=== PATIENT | female | born 1975 | race Caucasian/White ===

== ENCOUNTER 2017-08-18 10:53 | Emergency (ER) | payer BC, OTHER ==
[2017-08-18 11:46] LABS: #Basophils 0.1 thou/uL (0.0-0.2); #Eosinphils 0.3 thou/uL (0.0-0.7); #Lymphocytes 1.8 thou/uL (1.20-3.40); #Monocytes 0.4 thou/uL (0.11-0.59); #Neutrophils 4.8 thou/uL (1.40-6.50); %Eosinophils 4.6 % (0.0-10.0); %Lymphocytes 24.2 % (21.0-51.0); %Monocytes 5.3 % (0.0-10.0); Mean Platelet Volume 8.9 fL (7.4-10.4); Red Blood Cell (RBC) Count 4.02 mill/uL (4.20-5.40); White Blood Cell (WBC) Count 7.4 thou/uL (4.8-10.8)
--- OUTSIDE RECORDS SUMMARY | 2017-08-18 12:08 | XMS | Clinical Summary ---
:1975 Author Organization [facility] Address [address] [place] [address] Phone Care Team Providers Name Role Phone , Primary Care Provider Unavailable Allergies Not on File Current Medications Not on file Active Problems Not on file Social History Tobacco Use Types Packs/Day Years Used Date Never Assessed Sex Assigned at Date Recorded Not on file Last Filed Vital Signs Not on file Plan of Treatment Not on file Results Not on filefrom Last 3 Months
--- OUTSIDE RECORDS SUMMARY | 2017-08-18 12:08 | XMS | Clinical Summary ---
:1975 Author Organization [facility] Address [address] [place] [address] Phone Care Team Providers Name Role Phone , Primary Care Provider Unavailable Allergies Active Allergy Reactions Severity Noted Date Comments Azithromycin 05/06/2017 Other 05/06/2017 All SSRI's tingling all over Current Medications Prescription Sig. Disp. Refills Start Date End Date Status butalbital-acetamino Take by mouth every 4 Active phen-caff (FIORICET) (four) hours. 50-300-40 mg Cap aspirin 81 MG EC Take 81 mg by mouth Active tablet daily. rivaroxaban Take by mouth. Active (XARELTO) 15 mg Tab tablet hyoscyamine 0.125 mg Take 0.125 mg by Active TbDL disintegrating mouth every 4 (four) tablet hours as needed. ondansetron Take 4 mg by mouth Active (ZOFRAN-ODT) 4 MG every 8 (eight) hours disintegrating as needed for Nausea. tablet ranitidine (ZANTAC) Take 300 mg by mouth Active 300 MG capsule every evening. EPINEPHrine (EPIPEN) Inject 0.3 mg Active 0.3 mg/0.3 mL AtIn intramuscularly once. DOMPERIDONE, BULK, by Miscellaneous Active MISC route. sodium Take 1 tablet (250 mg 20 tablet 0 05/06/2017 Active phosphates-potassium total) by mouth 4 phosphate (K-PHOS (four) times daily. NEUTRAL) 250 mg Tab tablet sodium Take 1 tablet (250 mg 10 tablet 0 05/06/2017 Active phosphates-potassium total) by mouth 2 phosphate (K-PHOS (two) times daily. NEUTRAL) 250 mg Tab tablet Active Problems Not on file Social History Tobacco Use Types Packs/Day Years Used Date Never Smoker Alcohol Use Drinks/Week oz/Week Comments Yes occasional Sex Assigned at Date Recorded Not on file Last Filed Vital Signs Vital Sign Reading Time Taken Blood Pressure 117/64 05/07/2017 12:17 AM CDT Pulse 84 05/07/2017 12:17 AM CDT Temperature 36.8 C (98.3 F) 05/07/2017 12:17 AM CDT Respiratory Rate 16 05/07/2017 12:17 AM CDT Oxygen Saturation 99% 05/07/2017 12:17 AM CDT Inhaled Oxygen Concentration - - Weight - - Height - - Body Mass Index - - Plan of Treatment Not on file Results Not on filefrom Last 3 Months
[2017-08-18 12:10] LABS: ALT (SGPT) 23 U/L (8-55); AST (SGOT) 20 U/L (5-34); Alkaline Phosphatase 86 U/L (40-150); Anion Gap 13 mmol/L (10-20); BUN (Urea Nitrogen) 9 mg/dL (7.0-18.7); Bilirubin, Total 0.3 mg/dL (0.2-1.2); Calc. Creatinine Clearance 0 mL/min (70-130); Calcium 9.5 mg/dL (7.8-10.44); Carbon Dioxide 22 mmol/L (22-29); Chloride 107 mmol/L (98-107); Estimated GFR-MDRD Greater than 90; Globulin 3.2 g/dL (2.4-3.5); Lipase 36 U/L (8-78); Protein, Total 7.6 g/dL (6.0-8.3)
[2017-08-18 13:31] LABS: Bilirubin Negative (Negative); Blood, Urine Small (Negative); Glucose, Urine (Dipstick) Negative (Negative); Ketone, Urine Negative (Negative); Nitrite Negative (Negative); Protein, Urine (Dipstick) Negative (Neg-Trace); Urobilinogen 0.2 mg/dL (0.2-1.0)
[2017-08-18 13:36] LABS: Bacteria/HPF None Seen HPF (None Seen); Hyaline Casts/LPF 0-3 HYALINE CAST LPF (0-3 Hyaline); RBC/HPF 0-3 HPF (0-3); Squamous Epithelial 0-3 HPF (0-3); WBC/HPF 0-3 HPF (0-3)
--- NOTE | 2017-08-18 14:24 | CT ---
CT ABDOMEN AND PLEVIS WITH CONTRAST: Date: 08/18/17 HISTORY: Abdominal pain. Sudden right-sided flank pain. COMPARISON: CT abdomen and pelvis dated 05/11/17. FINDINGS: Lung bases are clear. No pericardial effusion. Prior cholecystectomy. No dilated loops of large or small bowel. There is what appears to be a septated uterus. There is a fibroid of the anterior uterine body. Skel eton is unremarkable. Appendix is visualized and is normal. Aortoiliac contour is normal. IMPRESSION: 1. No acute abnormality in abdomen or pelvis. 2. Normal appendix. 3. There is likely a septated uterus, normal variant. POS: [facility]
[2017-08-18] MEDS ORDERED: Ketorolac Tromethamine 30 MG/ML VIAL ONE (14:47)
[2017-08-18] MEDS ORDERED: ISOVUE-370 76%-LOCM 1 ML ONE (15:41)
== END 2017-08-18 14:56 | disposition home or self-care (01) ==
LOC: ERS 10:53
DX: R10.9 Unspecified abdominal pain (principal); R31.9 Hematuria, unspecified; K21.9 Gastro-esophageal reflux disease without esophagitis; Z79.899 Other long term (current) drug therapy
CPT/HCPCS: 36415; 74177; 80053; 81003; 81015; 83690; 85025; 96374; 96375; J1642; J1885

== ENCOUNTER 2019-02-25 21:44 | Emergency (ER) | payer BC ==
[2019-02-25 22:30] LABS: Hemoglobin 12.7 g/dL (12.0-16.0); Mean Corpuscular HGB CONC 32.3 g/dL (32.0-36.0); Mean Corpuscular Hemoglobin 29.3 pg (27.0-31.0); Mean Corpuscular Volume 90.5 fL (78.0-98.0); Mean Platelet Volume 9.1 fL (7.4-10.4); Platelet Count 220 thou/uL (130-400); Red Blood Cell (RBC) Count 4.33 mill/uL (4.20-5.40); White Blood Cell (WBC) Count 24.1 thou/uL (4.8-10.8)
[2019-02-25 22:37] LABS: Bilirubin Negative (Negative); Blood, Urine Large (Negative); Clarity CLEAR (Clear); Glucose, Urine (Dipstick) Negative (Negative); Leukocyte Negative (Negative); Nitrite Negative (Negative); Protein, Urine (Dipstick) Negative (Neg-Trace); Specific Gravity, Urine 1.024 (1.002-1.036); Urobilinogen 0.2 mg/dL (0.2-1.0); pH, Urine 5.5 (5.0-9.0)
[2019-02-25 22:39] LABS: Bacteria/HPF None Seen HPF (None Seen); Hyaline Casts/LPF 0-3 HYALINE CAST LPF (0-3 Hyaline); WBC/HPF 0-3 HPF (0-3)
[2019-02-25 22:44] LABS: Band 6 % (5-11); Lymphocytes 14 % (21-51); MDiff Complete? YES; Monocytes 3 % (0-10); Neutrophil 77 % (42-75)
[2019-02-25 22:47] LABS: ALT (SGPT) 29 U/L (8-55); AST (SGOT) 15 U/L (5-34); Albumin 4.3 g/dL (3.5-5.0); Alkaline Phosphatase 79 U/L (40-150); Anion Gap 16 mmol/L (10-20); BUN (Urea Nitrogen) 15 mg/dL (7.0-18.7); Bilirubin, Total 0.3 mg/dL (0.2-1.2); Calc. Creatinine Clearance 0 mL/min (70-130); Calcium 9.3 mg/dL (7.8-10.44); Carbon Dioxide 21 mmol/L (22-29); Chloride 104 mmol/L (98-107); Estimated GFR-MDRD 88; Globulin 3.1 g/dL (2.4-3.5); Glucose 151 mg/dL (70-105); Lipase 77 U/L (8-78); Potassium 4.1 mmol/L (3.5-5.1); Protein, Total 7.4 g/dL (6.0-8.3); Sodium 137 mmol/L (136-145)
[2019-02-25] MEDS ORDERED: Cyclobenzaprine 10 MG TAB ONE (23:13)
== END 2019-02-26 00:06 | disposition home or self-care (01) ==
LOC: ERS 21:44
DX: R10.9 Unspecified abdominal pain (principal); M54.2 Cervicalgia; K21.9 Gastro-esophageal reflux disease without esophagitis
CPT/HCPCS: 36415; 80053; 81003; 81015; 83690; 85025; 99284

== ENCOUNTER 2019-06-10 18:53 | Inpatient (IN) | payer BC ==
[~2019-06-10 18:53] MED LIST: Iopamidol 370 76% 100 ML VIAL ONE
[2019-06-10 19:30] LABS: Hemoglobin 11.7 g/dL (12.0-16.0); Mean Corpuscular HGB CONC 30.8 g/dL (32.0-36.0); Mean Corpuscular Hemoglobin 25.3 pg (27.0-31.0); Mean Corpuscular Volume 82.2 fL (78.0-98.0); Mean Platelet Volume 9.5 fL (7.4-10.4); Platelet Count 274 thou/uL (130-400); RBC Distribution Width 20.8 % (11.5-14.5); Red Blood Cell (RBC) Count 4.62 mill/uL (4.20-5.40); White Blood Cell (WBC) Count 23.6 thou/uL (4.8-10.8)
[2019-06-10 19:39] LABS: Bacteria/HPF None Seen HPF (None Seen); Bilirubin Negative (Negative); Blood, Urine 1+ (Negative); Clarity Clear (Clear); Glucose, Urine (Dipstick) Greater than 1000 mg/dL (Negative); Leukocyte Negative Leu/uL (Negative); Nitrite Negative (Negative); Protein, Urine (Dipstick) Negative (Neg-Trace); RBC/HPF 0-3 HPF (0-3); Squamous Epithelial 0-3 HPF (0-3); Urobilinogen Normal mg/dL (Less than 2); WBC/HPF 0-3 HPF (0-3)
[2019-06-10 19:42] LABS: Anisocytosis SLIGHT = 6-15 cells (100X) (0-5/hpf); Band 8 % (5-11); Hypochromia SLIGHT = 6-15 cells (100X) (0-5/hpf); Lymphocytes 6 % (21-51); MDiff Complete? YES; Neutrophil 86 % (42-75); Platelet Morphology Comment Appears Adequate; Polychromasia SLIGHT = 2-3 cells (100X) (0-2/hpf); Tear Drops SLIGHT = 2-5 cells (100X) (0-1/hpf)
[2019-06-10 19:48] LABS: ALT (SGPT) 40 U/L (8-55); AST (SGOT) 18 U/L (5-34); Albumin 4.1 g/dL (3.5-5.0); Alkaline Phosphatase 75 U/L (40-150); Anion Gap 17 mmol/L (10-20); BUN (Urea Nitrogen) 6 mg/dL (7.0-18.7); Bilirubin, Total 0.2 mg/dL (0.2-1.2); Calc. Creatinine Clearance 0 mL/min (70-130); Calcium 9.2 mg/dL (7.8-10.44); Carbon Dioxide 15 mmol/L (22-29); Chloride 106 mmol/L (98-107); Estimated GFR-MDRD 75; Glucose 290 mg/dL (70-105); Lipase 63 U/L (8-78); Potassium 3.6 mmol/L (3.5-5.1); Protein, Total 7.1 g/dL (6.0-8.3); Sodium 134 mmol/L (136-145)
[2019-06-10 20:23] LABS: BHCG - Serum Negative (NEGATIVE); Pregs Control Background? CLEAR/WHITE (CLR/WHITE); Pregs Control Bar Appear? YES (CONTROL BAR)
[2019-06-10] MEDS ORDERED: Ondansetron PF 4 MG/2 ML Vial ONE (20:28)
[2019-06-10] MEDS ORDERED: Piperacillin/Tazobactam 3.375 GM VIAL ONE (21:24)
[2019-06-10] MEDS ORDERED: Pantoprazole 40 MG VIAL ONE ×2 (21:24→22:57)
[2019-06-10] MEDS ORDERED: Morphine 4 MG/ML VIAL ONE (21:53)
--- NOTE | 2019-06-10 22:30 | CT ---
CT OF THE ABDOMEN AND PELVIS WITH IV CONTRAST INDICATION: Diffuse abdominal pain, worse over the last 2 days with history of Crohn's disease COMPARISON: CT the abdomen and pelvis with contrast dated August 18, 2017 FINDINGS: ABDOMEN: Lung bases: Clear Liver: No focal lesion. Gallbladder: Surgically absent Pancreas: Normal. Adrenal glands: Normal. Spleen: Normal. Kidneys: Normal. Retroperitoneum of the upper abdomen: No lymphadenopathy or free fluid is identified. Pelvis: Small and large bowel: Small bowel is of normal caliber. There is a normal appendix in the right lowe r quadrant. Bladder: Normal. Rectal and perirectal soft tissues:Normal. Reproductive structures: There is a septated uterus with an enlarging left uterine body fibroid now m easuring 4.4 cm were previously measured 2.2 cm. Suspected 2.4 cm right adnexal cyst. Suspected 2.6 and meter left adnexal cyst. Debris versus tampon is seen within the vagina. Free fluid in pelvis: No free fluid is evident. Lymphadenopathy pelvis: No lymphadenopathy is evident. Osseous structures: No acute osseous abnormality. No destructive osteolytic or osteoblastic lesion i s identified. IMPRESSION: 1. Enlarging left uterine intramural fibroid 2. Suspected bilateral adnexal cysts. Pelvic ultrasound may be helpful for further characterization. 3. No additional acute abnormality.
[2019-06-11 01:28] LABS: Lactic Acid 3.3 mmol/L (0.5-2.2)
[2019-06-11 01:47] VITALS: BMI 30.4
[2019-06-11] MEDS ORDERED: Ondansetron ODT 4 MG TAB SL PRN (02:56)
[2019-06-11] MEDS ORDERED: Ondansetron PF 4 MG/2 ML Vial IVP PRN (02:56)
[2019-06-11] MEDS ORDERED: Acetaminophen 325 MG TAB PO PRN (02:56)
[2019-06-11] MEDS ORDERED: Sodium Chloride 0.9% 1,000 ML IV SCH (03:00)
[2019-06-11] MEDS: Piperacillin/Tazobactam 3.375 GM in Sodium Chloride 0.9% 100 ML IVPB SCH ×3 (03:36→17:47)
[2019-06-11] MEDS ORDERED: Cyclobenzaprine 10 MG TAB PO PRN (08:37)
[2019-06-11] MEDS ORDERED: traMADol HCl 50 MG TAB PO PRN (08:37)
[2019-06-11] MEDS ORDERED: Ondansetron ODT 4 MG TAB PO PRN (08:39)
[2019-06-11] MEDS ORDERED: HYDROcodone/Acetaminophen 10/325 mg Tablet PO PRN (08:39)
[2019-06-11] MEDS ORDERED: HYDROcodone/Acetaminophen 5/325 mg Tablet PO PRN (08:39)
[2019-06-11] MEDS ORDERED: Dextrose 5% in Water 1,000 ML IV PRN (08:46)
[2019-06-11] MEDS ORDERED: Dextrose 50% Abboject 50 ML SYRINGE SLOW IVP PRN (08:46)
[2019-06-11 10:02] LABS: Hemoglobin A1c 5.7 % (4.0-6.0)
[2019-06-11 12:38] LABS: #Eosinphils 0.2 thou/uL (0.0-0.7); #Lymphocytes 4.5 thou/uL (1.20-3.40); #Monocytes 1.4 thou/uL (0.11-0.59); #Neutrophils 22.2 thou/uL (1.40-6.50); %Basophils 0.1 % (0.0-1.0); %Eosinophils 0.6 % (0.0-10.0); %Lymphocytes 15.8 % (21.0-51.0); %Monocytes 4.8 % (0.0-10.0); %Neutrophils 78.7 % (42.0-75.0); Hemoglobin 10.1 g/dL (12.0-16.0); Mean Corpuscular HGB CONC 31.4 g/dL (32.0-36.0); Mean Corpuscular Hemoglobin 25.6 pg (27.0-31.0); Mean Corpuscular Volume 81.5 fL (78.0-98.0); Mean Platelet Volume 9.2 fL (7.4-10.4); Platelet Count 251 thou/uL (130-400); RBC Distribution Width 20.7 % (11.5-14.5); Red Blood Cell (RBC) Count 3.95 mill/uL (4.20-5.40); White Blood Cell (WBC) Count 28.2 thou/uL (4.8-10.8)
[2019-06-11 12:56] LABS: Lactic Acid 3.8 mmol/L (0.5-2.2)
[2019-06-11 13:00] LABS: Anion Gap 12 mmol/L (10-20); BUN (Urea Nitrogen) 4 mg/dL (7.0-18.7); Calc. Creatinine Clearance 112 mL/min (70-130); Calcium 8.7 mg/dL (7.8-10.44); Carbon Dioxide 22 mmol/L (22-29); Chloride 107 mmol/L (98-107); Estimated GFR-MDRD 85; Glucose 86 mg/dL (70-105); Potassium 3.3 mmol/L (3.5-5.1); Sodium 138 mmol/L (136-145)
--- NOTE | 2019-06-11 13:29 | HP ---
PRIMARY CARE PHYSICIAN: Kala Tay M.D., [facility]. ALLERGIST IMMUNOLOGIST: Warren Patricia M.D. CHIEF COMPLAINT/REASON FOR ADMISSION: Abdominal pain and black tarry stools. HISTORY OF PRESENT ILLNESS: Ms. Araujo is a very pleasant 43-year-old female with a known history of Crohn disease, diagnosed initially in 2014. She has a background history of intermittent abdominal pain for the last several months, seen and evaluated at intervals with Dr. Patricia. She was recently hospitalized for an observational one-day stay in March 2019, after unsuccessful initiation of sulfasalazine therapy with interval development of chest pain. Sulfasalazine was subsequently discontinued. Previously for Crohn's, she had been on Humira. This has now been discontinued, in favor of Remicade. She has undergone three total Remicade infusions. She saw Dr. Patricia in the office on 06/07/2019, noting intermittent abdominal discomfort with a clinical working diagnosis of gastroparesis. On 06/09/2019, she noted black tarry stools, occurring x3 episodes. She contacted the Gastroenterology office as well and received instructions by phone on how to proceed. Yesterday, she proceeded for iron infusion, generally felt worse, was noted during infusion to have slightly decreased hemoglobin relative to baseline. She reports a small amount of black tarry stool yesterday, contacted the GI office once again, and was referred to the hospital. She proceeded to hospital yesterday evening, triage time 18:54 in the emergency department. The patient was seen and evaluated by me this morning, approximately 7:45 a.m. She endorses mild nausea, but no vomiting. She has abdominal pain, which is periumbilical in nature, no specific cramping. No bowel movements today. She endorses subjective low- grade temperature, has been afebrile thus far during her hospitalization. In the emergency department, CT abdomen and pelvis with IV contrast was done and was overall unremarkable. Laboratory evaluation notable for elevated white blood cell count of 23,000, hemoglobin of 11.7, serum bicarbonate of 15, glucose of 290. Lactic acid elevated at 3.2. She was placed on empiric antibiotic coverage with Zosyn, admitted to the hospital for additional evaluation and care. PAST MEDICAL HISTORY: 1. Crohn disease, with complications including Crohn's-related arthritis - Diagnosed with Crohn disease in 2014. Sees Dr. 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 2. Fibromyalgia. 3. History of vasovagal syncope with previous negative cardiac evaluations. 4. Hypothyroidism. 5. Gastroesophageal reflux disease. 6. Iron deficiency anemia, on chronic iron infusion. PAST SURGICAL HISTORY: 1. MediPort placement. 2. Cholecystectomy. 3. . 4. Right hand surgery in 1983. 5. Ovarian cyst. 6. Laparoscopy in 1993. SOCIAL HISTORY: Ms. Araujo is . She lives in [facility]. She has one daughter, who is 22. 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 No alcohol use , no illicit drug use, no tobacco use. ALLERGIES: LISTED PER CHART TO AZITHROMYCIN. CURRENT MEDICATIONS: Reviewed with the patient. 1. Levothyroxine 50 mcg p.o. once daily. 2. Pantoprazole 40 mg p.o. once daily. 3. Ranitidine 300 mg p.o. once daily. 4. Prednisone 15 mg p.o. once daily (each week, decreasing dose of prednisone by 5 mg). 5. Budesonide 3 mg, takes three capsules p.o. once daily. 6. Cyclobenzaprine 10 mg p.o. q.h.s. p.r.n. muscle spasm. 7. Tramadol 50 mg p.o. q.8 hourly p.r.n. pain. FAMILY HISTORY: Reviewed and is not pertinent to current admission. REVIEW OF SYSTEMS: Full review of systems reviewed/addressed/negative except otherwise as mentioned. Specifically, denies bright red blood per rectum. No hematemesis. Weight has generally been stable. No recent joint that has flared up with arthropathy. PHYSICAL EXAMINATION: VITAL SIGNS: Blood pressure is 114/67, heart rate is 91, temperature 98.0, saturating 100% on room air. GENERAL: This is a well-developed, well-nourished female, sitting up in bed, in no acute distress. Mistry facies is present in the context of longstanding steroids as well as some mild hirsutism present. HEENT: Eyes are without conjunctival injection or scleral icterus. Oropharynx is clear without erythema or exudate. NECK: Supple. Full range of motion. HEART: Regular rate and rhythm without distinct murmurs/rubs/gallops. LUNGS: Clear to auscultation bilaterally. ABDOMEN: Soft, minimally tender, no guarding/no rebound. EXTREMITIES: No clubbing/cyanosis/edema. No evidence of joint inflammation active in joints at this time. SKIN: Without skin rash or skin change. LAB/DATA REVIEW: Laboratory evaluation includes a white blood cell count of 23, 000, hemoglobin 11.7, hematocrit 37, platelet count 274, 86% neutrophils, 6% lymphocytes. Chemistry panel, serum sodium 134, potassium 3.6, carbon dioxide 15, BUN 6, creatinine is 0.8, glucose 290. Lactic acid 3.2. Lipase is normal at 63. test negative. IMPRESSION: 1. Crohn disease with reported history of melena, fecal occult blood positive, in the context of elevated white blood cell count and lactic acid, concerning for sepsis secondary to abdominal source. 2. Metabolic acidosis. 3. Hyperglycemia without background history of diabetes, possible development of and steroid-induced diabetes. 4. Abdominal discomfort, likely secondary to Crohn disease. 5. Elevated lactic acid. 6. Iron deficiency anemia, on chronic iron infusion as an outpatient. PLAN/RECOMMENDATIONS: 1. GI - I spoke by phone with Dr. Chun, covering for Dr. Patricia in GI, care appreciated. Continue n.p.o. status. Pending GI evaluation, upper endoscopy versus trial of diet. Presently on antibiotic coverage with Zosyn, follow white blood cell count/parameters for sepsis. Interestingly, low-grade temperature reported by the patient at home, no distinct fever observed in the emergency room. However, she is immunosuppressed on Remicade and chronic steroids, so may have a modulated fever response. 2. Endocrine - Hemoglobin A1c appears to be in the normal range, recheck basic metabolic panel, placed on Accu-Cheks and insulin correctional. 3. Fluids, electrolytes, nutrition. Continue IV fluids, check morning basic metabolic panel, metabolic acidosis present on admission. Clear liquid diet, gluten-free vegan, mushroom allergy ordered if no endoscopy planned. 4. DVT prophylaxis, hold on Lovenox at this time secondary to concern of clinical bleeding. 5. Given her age/comorbidities, the patient is a high risk. Monitor closely in the inpatient status. Job ID: [id number] [facility]
[2019-06-11] MEDS: Sodium Chloride 0.9% 1,000 ML IV SCH ×2 (13:54→23:23)
[2019-06-11] MEDS ORDERED: predniSONE 5 MG TAB PO SCH (14:00)
[2019-06-11] MEDS: Famotidine 20 MG TAB PO SCH (21:42)
[2019-06-11] MEDS: Ondansetron PF 4 MG/2 ML Vial IVP PRN (23:27)
[2019-06-11] MEDS: Morphine 4 MG/ML VIAL SLOW IVP PRN (23:28)
[2019-06-12] MEDS: Piperacillin/Tazobactam 3.375 GM in Sodium Chloride 0.9% 100 ML IVPB SCH ×4 (00:19→18:30)
[2019-06-12] MEDS: Ondansetron PF 4 MG/2 ML Vial IVP PRN ×3 (05:33→20:01)
[2019-06-12] MEDS: Morphine 4 MG/ML VIAL SLOW IVP PRN ×3 (05:34→20:05)
[2019-06-12] MEDS: Levothyroxine Sodium 50 MCG TAB PO SCH (05:35)
[2019-06-12 05:39] LABS: #Eosinphils 0.3 thou/uL (0.0-0.7); #Lymphocytes 3.6 thou/uL (1.20-3.40); #Monocytes 1.1 thou/uL (0.11-0.59); #Neutrophils 13.8 thou/uL (1.40-6.50); %Basophils 0.2 % (0.0-1.0); %Eosinophils 1.6 % (0.0-10.0); %Lymphocytes 18.9 % (21.0-51.0); %Neutrophils 73.2 % (42.0-75.0); Hemoglobin 9.5 g/dL (12.0-16.0); Mean Corpuscular HGB CONC 30.7 g/dL (32.0-36.0); Mean Corpuscular Hemoglobin 25.2 pg (27.0-31.0); Mean Corpuscular Volume 81.8 fL (78.0-98.0); Mean Platelet Volume 9.1 fL (7.4-10.4); Platelet Count 226 thou/uL (130-400); RBC Distribution Width 20.6 % (11.5-14.5); Red Blood Cell (RBC) Count 3.77 mill/uL (4.20-5.40); White Blood Cell (WBC) Count 18.8 thou/uL (4.8-10.8)
[2019-06-12 05:58] LABS: Anion Gap 11 mmol/L (10-20); BUN (Urea Nitrogen) 4 mg/dL (7.0-18.7); Calc. Creatinine Clearance 124 mL/min (70-130); Calcium 8.7 mg/dL (7.8-10.44); Carbon Dioxide 25 mmol/L (22-29); Chloride 110 mmol/L (98-107); Estimated GFR-MDRD Greater than 90; Glucose 96 mg/dL (70-105); Potassium 3.3 mmol/L (3.5-5.1); Sodium 143 mmol/L (136-145)
[2019-06-12] MEDS ORDERED: predniSONE 5 MG TAB PO SCH ×2 (08:00→17:00)
--- NOTE | 2019-06-12 08:50 | RAD ---
EXAM: Chest PA and lateral: HISTORY: Leukocytosis. COMPARISON: None FINDINGS: Right-sided Mediport catheter terminates over the region of the right atrium. Heart: Normal cardiac silhouette Aorta: Unremarkable Pulmonary vessels: Normal Costophrenic angles: Costophrenic angles are clear. Lungs: No consolidation or masses. Pneumothorax: No pneumothorax Osseous structures: No osseous abnormalities IMPRESSION: No acute cardiopulmonary process.
[2019-06-12] MEDS: Famotidine 20 MG TAB PO SCH ×2 (08:53→19:48)
--- NOTE | 2019-06-12 13:42 | EKG ---
Test Reason : Blood Pressure : / mmHG Vent. Rate : 115 BPM Atrial Rate : 115 BPM P-R Int : 120 ms QRS Dur : 084 ms QT Int : 324 ms P-R-T Axes : 041 -13 -04 degrees QTc Int : 448 ms Sinus tachycardia Otherwise normal ECG Confirmed by BALBIR HANNA, MONTEZ ([id number]), newspaper photo editor VERONICA COBB ([id number]) on 06/12/2019 1:42:39 PM Referred By: Confirmed By:MONTEZ MCGREGOR MD
--- NOTE | 2019-06-12 14:23 | MRI ---
MRI ABDOMEN WITH CONTRAST MRI ENTEROGRAPHY: CLINICAL HISTORY: History of abdominal pain, chronic diarrhea. History of Crohn's disease. FINDINGS: There is no acute abnormality of the imaged solid abdominal organs. The visualized contrast-opacifie d small bowel demonstrates a normal caliber. No obvious small bowel wall inflammation or surrounding mesenteric edema is visualized. The colon is predominantly decompressed, limiting evaluation. Heterogeneity of the uterus with intrinsic masses indicates fibroid uterus. There are bilateral adne xal cysts noted. Punctate parenchyma T2 hyperintensities of the right kidney statistically reflect c ysts, although are too small to definitively characterize. Abdominal aorta is normal in caliber. No acute abnormality of the regional marrow. IMPRESSION: 1. No acute bowel inflammation identified by MR enterography. 2. No evidence of bowel obstruction. 3. Additional details are described above. POS: [facility]
--- NOTE | 2019-06-12 15:27 | PDOC.HOSPP ---
- Subjective Subjective: Seen and examined. States that black tarry stools has gotten better since arrival. No mike blood in stools. Some abdominal pain, controlled on current regimen. Going for MRI abdomen this AM. - Objective Vital Signs & Weight: Vital Signs (12 hours) Temp Pulse Resp BP Pulse Ox 06/12/19 10:53 97.4 F L 82 20 139/90 100 06/12/19 08:45 100 06/12/19 08:00 98.3 F 100 20 124/81 100 Weight Weight 161 lb 6 oz I&O: 06/11/19 06/12/19 06/13/19 06:59 06:59 06:59 Intake Total 500 1050 Balance 500 1050 Result Diagrams: 06/12/19 05:27 06/12/19 05:27 Additional Labs: Accuchecks 06/12/19 06/12/19 06/11/19 10:53 05:06 20:44 POC Glucose 102 100 176 H 06/11/19 16:11 POC Glucose 105 Radiology Reviewed by me: Yes (CXR) ROS - Medication Medications: Active Medications Generic Name Dose Route Start Last Admin Trade Name Freq PRN Reason Stop Dose Admin Budesonide 9 mg 06/11/19 09:00 06/12/19 08:53 Entocort Ec PO 9 mg QAM ALEJANDRA Administration Famotidine 20 mg 06/11/19 21:00 06/12/19 08:53 Pepcid PO 20 mg BID ALEJANDRA Administration Glucagon 0.3 mg 06/12/19 09:00 06/12/19 13:17 Glucagon IVP 06/12/19 21:01 0.3 mg BID ALEJANDRA Administration Sodium Chloride 1,000 mls @ 80 mls/hr 06/11/19 13:15 06/11/19 23:23 Normal Saline 0.9% IV 1,000 mls .[id number] ALEJANDRA Administration Piperacillin Sod/Tazobactam 100 mls @ 200 mls/hr 06/11/19 18:00 06/12/19 13: 34 Sod 3.375 gm/ Sodium Chloride IVPB 100 mls Q6HR ALEJANDRA Administration Levothyroxine Sodium 50 mcg 06/12/19 06:00 06/12/19 05:35 Synthroid PO 50 mcg 0600 ALEJANDRA Administration Morphine Sulfate 4 mg 06/11/19 08:47 06/12/19 13:40 Morphine SLOW IVP 4 mg Q4H PRN Administration Breakthrough Pain Ondansetron HCl 4 mg 06/11/19 08:39 06/12/19 13:39 Zofran IVP 4 mg Q6H PRN Administration Nausea/Vomiting Pantoprazole Sodium 40 mg 06/11/19 09:00 06/12/19 08:53 Protonix PO 40 mg DAILY ALEJANDRA Administration Prednisone 15 mg 06/12/19 08:00 06/12/19 08:53 Prednisone PO 15 mg QAM-WM ALEJANDRA Administration - Exam NAD, awake alert Eye: PERRL, anicteric sclera ENT: moist mucosa Neck: supple, symmetric Heart: RRR, no murmur, no gallops, no rubs Respiratory: CTAB, no wheezes, no rales, normal chest expansion Gastrointestinal: soft, non-distended, normal bowel sounds, no hepatomegaly, no guarding, no rigidity, tender to palpation Extremities: 1+ LE edema Skin: no lesions Neurological: CN's grossly intact, no weakness, no focal deficits Musculoskeletal: normal tone Psychiatric: normal affect, A&O x 3 Hosp A/P (1) Crohns disease Code(s): K50.90 - CROHN'S DISEASE, UNSPECIFIED, WITHOUT COMPLICATIONS Status: Chronic (2) GI bleeding Code(s): K92.2 - GASTROINTESTINAL HEMORRHAGE, UNSPECIFIED Status: Acute (3) Abdominal pain Code(s): R10.9 - UNSPECIFIED ABDOMINAL PAIN Status: Acute (4) Sepsis Code(s): A41.9 - SEPSIS, UNSPECIFIED ORGANISM Status: Acute (5) Fever Code(s): R50.9 - FEVER, UNSPECIFIED Status: Acute (6) Leukocytosis Code(s): D72.829 - ELEVATED WHITE BLOOD CELL COUNT, UNSPECIFIED Status: Acute - Plan Plan: GI consultation, recommendations appreciated MRI abdomen noted CXR noted Remicaid recently started Black stools improving No need for transfusion at this time Broad spectrum ABX Culture and sensitivity - no growth to date Continue home meds as able GI and DVT PPX
[2019-06-12] MEDS: Sodium Chloride 0.9% 1,000 ML IV SCH (17:08)
[2019-06-12] MEDS: NS 0.9% w/ 20 MEQ KCL 1,000 ML/1,000 ML BAG IV SCH (17:09)
[2019-06-12] MEDS: HumaLOG 300 UNITS/3 ML VIAL SC PRN (17:11)
--- NOTE | 2019-06-12 17:39 | PRG ---
DATE OF SERVICE: 06/12/2019 SUBJECTIVE: Ms. Araujo had a little bit of periumbilical pain today. She states her stool has been formed and also loose. She had some flecks of black in her stool. She denies any cough, shortness of breath, dysuria, frequency, or urgency. She has been afebrile. OBJECTIVE: VITAL SIGNS: Temperature 97.4, pulse is 82, blood pressure 139/90. LUNGS: Clear. ABDOMEN: Slightly protuberant. She has cushingoid features. LABORATORY DATA: White count is 18.8, hemoglobin is 9.5, platelet count 226, 73 segs, no bands. Sodium 143, potassium 3.3, BUN and creatinine 4 and 0.6. Lactic acid 4. . Blood cultures are negative thus far. Chest x-ray, normal. QuantiFERON test, pending. MR enterography; no acute inflammatory bowel disease identified. No evidence of bowel obstruction. There is a fibroid uterus present. Bilateral adnexal cysts. ASSESSMENT: 1. Leukocytosis, she has no infection. She has been on steroids, and I think it is from that. 2. Crohn disease. No evidence of active disease. She had a C-reactive protein of less than 5 and a sedimentation rate of 3. RECOMMENDATIONS: Continue to wean steroids. If her hemoglobin is stable, she can go home tomorrow and follow up with Dr. Patricia. Job ID: [id number]
[2019-06-13] MEDS: Piperacillin/Tazobactam 3.375 GM in Sodium Chloride 0.9% 100 ML IVPB SCH ×3 (00:12→16:07)
[2019-06-13] MEDS: Levothyroxine Sodium 50 MCG TAB PO SCH (06:08)
[2019-06-13] MEDS: NS 0.9% w/ 20 MEQ KCL 1,000 ML/1,000 ML BAG IV SCH (06:23)
[2019-06-13] MEDS ORDERED: predniSONE 5 MG TAB PO SCH (08:00)
[2019-06-13] MEDS: Famotidine 20 MG TAB PO SCH (08:25)
[2019-06-13] MEDS ORDERED: Saccharomyces boulardii 250 MG CAP PO SCH (09:00)
[2019-06-13 09:26] LABS: #Basophils 0.1 thou/uL (0.0-0.2); #Eosinphils 0.1 thou/uL (0.0-0.7); #Lymphocytes 5.2 thou/uL (1.20-3.40); #Monocytes 1.1 thou/uL (0.11-0.59); #Neutrophils 11.2 thou/uL (1.40-6.50); %Basophils 0.4 % (0.0-1.0); %Eosinophils 0.8 % (0.0-10.0); %Lymphocytes 29.5 % (21.0-51.0); %Monocytes 6.1 % (0.0-10.0); %Neutrophils 63.2 % (42.0-75.0); Hemoglobin 10.2 g/dL (12.0-16.0); Mean Corpuscular Hemoglobin 26.1 pg (27.0-31.0); Mean Corpuscular Volume 81.6 fL (78.0-98.0); Mean Platelet Volume 9.7 fL (7.4-10.4); Platelet Count 216 thou/uL (130-400); RBC Distribution Width 20.9 % (11.5-14.5); Red Blood Cell (RBC) Count 3.89 mill/uL (4.20-5.40); White Blood Cell (WBC) Count 17.7 thou/uL (4.8-10.8)
[2019-06-13 09:31] LABS: Anion Gap 16 mmol/L (10-20); BUN (Urea Nitrogen) 4 mg/dL (7.0-18.7); Calc. Creatinine Clearance 108 mL/min (70-130); Calcium 8.5 mg/dL (7.8-10.44); Carbon Dioxide 20 mmol/L (22-29); Chloride 107 mmol/L (98-107); Estimated GFR-MDRD 81; Glucose 152 mg/dL (70-105); Potassium 3.4 mmol/L (3.5-5.1); Sodium 140 mmol/L (136-145)
[2019-06-13] MEDS: HumaLOG 300 UNITS/3 ML VIAL SC PRN (11:49)
--- NOTE | 2019-06-13 15:06 | PDOC.HOSPP ---
- Subjective Subjective: Seen and examined. Still with abdominal pain requiring IV pain medications. Still with dark black stool, denies overt bloody stool. Feeling very tired. Questions were asked and answered concerning MRI of the abdomen. - Objective Vital Signs & Weight: Vital Signs (12 hours) Temp Pulse Resp BP Pulse Ox 06/13/19 08:00 99 06/13/19 07:20 98.5 F 90 20 110/66 99 Weight Weight 161 lb 6 oz I&O: 06/12/19 06/13/19 06/14/19 06:59 06:59 06:59 Intake Total 1050 2555 Balance 1050 2555 Result Diagrams: 06/13/19 09:06 06/13/19 09:08 Additional Labs: Accuchecks 06/13/19 06/13/19 06/12/19 11:45 06:02 19:47 POC Glucose 196 H 91 160 H 06/12/19 15:59 POC Glucose 206 H ROS - Medication Medications: Active Medications Generic Name Dose Route Start Last Admin Trade Name Freq PRN Reason Stop Dose Admin Budesonide 9 mg 06/11/19 09:00 06/13/19 08:24 Entocort Ec PO 9 mg QAM ALEJANDRA Administration Famotidine 20 mg 06/11/19 21:00 06/13/19 08:25 Pepcid PO 20 mg BID ALEJANDRA Administration Piperacillin Sod/Tazobactam 100 mls @ 200 mls/hr 06/11/19 18:00 06/13/19 06: 09 Sod 3.375 gm/ Sodium Chloride IVPB 100 mls Q6HR ALEJANDRA Administration Potassium Chloride/Sodium Chloride 1,000 ml in 1,000 mls @ 75 mls/hr 06/12/19 17:00 06/13/19 06:23 Ns 0.9% W/ 20 Meq Kcl IV 1,000 mls .[id number] ALEJANDRA Administration Insulin Human Lispro 0 units 06/11/19 08:46 06/13/19 11:49 Humalog SC 2 unit .MILD SLIDING SCALE PRN Administration Mild Correctional Scale Levothyroxine Sodium 50 mcg 06/12/19 06:00 06/13/19 06:08 Synthroid PO 50 mcg 0600 ALEJANDRA Administration Morphine Sulfate 4 mg 06/11/19 08:47 06/12/19 20:05 Morphine SLOW IVP 4 mg Q4H PRN Administration Breakthrough Pain Ondansetron HCl 4 mg 06/11/19 08:39 06/13/19 11:53 Zofran Odt PO 4 mg Q6H PRN Administration Nausea/Vomiting Ondansetron HCl 4 mg 06/11/19 08:39 06/12/19 20:01 Zofran IVP 4 mg Q6H PRN Administration Nausea/Vomiting Pantoprazole Sodium 40 mg 06/11/19 09:00 06/13/19 08:25 Protonix PO 40 mg DAILY ALEJANDRA Administration Prednisone 10 mg 06/13/19 08:00 06/13/19 08:24 Prednisone PO 10 mg QAM-WM ALEJANDRA Administration Saccharomyces Boulardii 250 mg 06/13/19 09:00 06/13/19 08:24 Florastor PO 250 mg DAILY ALEJANDRA Administration Tramadol HCl 50 mg 06/11/19 08:37 06/13/19 11:47 Ultram PO 50 mg Q8HR PRN Administration mild pain 1-3 - Exam NAD, awake alert Eye: PERRL, anicteric sclera ENT: normocephalic atraumatic, moist mucosa ENT - other findings: 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 Neck: supple Heart: RRR, no murmur, no rubs Respiratory: CTAB, no wheezes, no rales, no ronchi Gastrointestinal: soft, non-distended, normal bowel sounds, no guarding, no rigidity, tender to palpation Extremities: 1+ LE edema Neurological: CN's grossly intact, normal sensation to touch, no focal deficits Musculoskeletal: normal strength Psychiatric: normal affect, A&O x 3 Hosp A/P (1) Crohns disease Code(s): K50.90 - CROHN'S DISEASE, UNSPECIFIED, WITHOUT COMPLICATIONS Status: Chronic (2) GI bleeding Code(s): K92.2 - GASTROINTESTINAL HEMORRHAGE, UNSPECIFIED Status: Acute (3) Abdominal pain Code(s): R10.9 - UNSPECIFIED ABDOMINAL PAIN Status: Acute (4) Sepsis Code(s): A41.9 - SEPSIS, UNSPECIFIED ORGANISM Status: Acute (5) Fever Code(s): R50.9 - FEVER, UNSPECIFIED Status: Acute (6) Leukocytosis Code(s): D72.829 - ELEVATED WHITE BLOOD CELL COUNT, UNSPECIFIED Status: Acute - Plan Plan: GI consultation, recommendations appreciated MRI abdomen noted CXR noted Remicaid recently started Black stools persist No need for transfusion at this time Broad spectrum ABX Culture and sensitivity - no growth to date Continue home meds as able 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
[2019-06-13 16:31] VITALS: BP 121/89; TEMP 98.6
--- NOTE | 2019-06-13 17:39 | PRG ---
DATE OF SERVICE: 06/13/2019 SUBJECTIVE: Ms. Araujo is without pain today. She has a protuberant abdomen. She states it cramps sometimes, but not any different than in the past. She has had no bleeding. No melena. No fever. She is concerned about her platelet, I have informed her that are normal. She is concerned about her potassium and I have informed her that 3.4 is fine as it is kind of where she typically runs and I suspect she has some potassium wasting with her steroids. She has had no overnight bleeding or fever per the nurses. MEDICATIONS: 1. Budesonide 9 mg a day. 2. Flexeril. 3. Pepcid. 4. P.r.n. [place]. 5. Insulin sliding scale. 6. Synthroid 50 mcg daily. 7. Zosyn. 8. Protonix. 9. Prednisone 20 mg p.o. daily. 10. Saccharomyces boulardii. 11. Ultram. PHYSICAL EXAMINATION: GENERAL: She is sitting in the bed comfortably. VITAL SIGNS: She has been afebrile overnight. T-max 98.5, pulse 90, and blood pressure 110/66. LUNGS: Clear. HEART: Regular rate and rhythm. ABDOMEN: Nontender, slightly protuberant. There is no rebound. There is no guarding. EXTREMITIES: No clubbing, cyanosis, or edema. SKIN: Notable for some striae in the lower abdomen. She has a cushingoid appearance. LABORATORY DATA: Sodium 140, potassium 3.7, bicarb 20, BUN and creatinine are 4 and 0.7. White count 17.7, platelet count 216, hemoglobin 10.2, was 11.7 on admission. Differential, normal, tested yesterday. Sedimentation rate was 3 on 06/12 and CRP was 0.5. MRCP was negative and chest x-ray was negative. Pending labs at this time. QuantiFERON, and stool lactoferrin was negative. Clostridium difficile was negative. Campylobacter was negative. Shiga toxins negative. Stool cultures negative. ASSESSMENT: History of Crohn disease. No evidence of active disease. She has had negative MRCP. Normal sedimentation rate, CRP. She did have a Hemoccult-positive stool and description of melena in the past. She does know what melena is and that she has had melena at her initial presentation, and her actual Crohn's was diagnosed based on a capsule endoscopy many years ago. Her most recent capsule endoscopy with Dr. Shannon was normal in last August in 2018. She has been recently switched over from Humira to Remicade. She finished her last induction infusions just before this admission. 1. Crohn disease. I think she is in remission. 2. Question history of melena. Her hemoglobin is a little low, but she is on steroids and multiple medications. It may be reasonable to repeat her capsule endoscopy of the small bowel as it seems that her diagnosis is elusive initially. MRI enterography, however, here has been normal. 3. Abdominal discomfort, myalgias, or arthralgias. She does have some overlap with fibromyalgia. She has had some arthropathies, which have been attributable to inflammatory bowel disease, but at this time she seems to have no markers of inflammation either in the stool or the blood. 4. With regard to her leukocytosis, I think this is related to her steroids. It has been high in the past and has been attributed to steroids as well. She shows no overt signs of infection. PLAN: 1. I think she can go home. I will talk with Dr. Patricia, her primary gastrologist and consider repeating a capsule endoscopy of the small bowel. I think her steroids need to be tapered, albeit slowly as she has been on them for some time and we will drop to 10 mg daily at discharge. She is going to be on some Entocort. 2. QuantiFERON pending at time of discharge. I have discussed with the patient and her family over the bedside. Job ID: [id number]
--- NOTE | 2019-06-13 23:11 | DIS ---
DATE OF ADMISSION: 06/11/2019 DATE OF DISCHARGE: 06/13/2019 REASON FOR HOSPITALIZATION: Abdominal pain and black stools. SIGNIFICANT FINDINGS: The patient is found to have stable hemoglobin on serial draws over her hospitalization and was determined to not have a significant gastrointestinal bleed per GI specialist. PROCEDURES PERFORMED AND TREATMENTS RENDERED: The patient had MRI of the abdomen, please see full report for details. The patient with serial lab draws that did not have any drop in hemoglobin over several days. CONDITION ON DISCHARGE: Stable. SPECIFIC INSTRUCTIONS FOR THE PATIENT OR FAMILY: 1. The patient is to take all medications as outlined, to be re-evaluated by primary care physician and Gastroenterology in the outpatient clinic. 2. Follow up with primary care physician in the next 2 to 4 days. 3. Follow up with feeder catcher, Dr. Patricia, in the next 5 to 7 days. 4. The patient is recommended to return to acute care hospital immediately if signs or symptoms return, worsen, or any other new symptoms occur. HOSPITAL COURSE: Ms. Araujo is a pleasant 43-year-old white female with past medical history of Crohn disease, who is on immunosuppressive therapy with Remicade and steroids, who presents with black stools and abdominal pain. Gastroenterology consultation requested, please see full consultation and progress notes for details. The patient with serial lab draws that did not demonstrate any significant drop in hemoglobin and the patient did not have significant bleeding. Although, the patient does have chronic dark stools, there was no bright red blood per rectum, and there was no indication for endoscopy per feeder catcher. The patient had MRI of the abdomen, please see full report for details, there is no acute intraabdominal pathology and no acute bowel inflammation that was identified on MRI. The patient was recommended safe for discharge by Gastroenterology specialist with close followup in the outpatient setting. The patient is recommended to continue all home medications, to be re-evaluated by primary care physician and Gastroenterology in the outpatient setting. The patient is to follow up with primary care physician in the next 2 to 4 days. The patient is to follow up with Gastroenterology in the next 5 to 7 days. The patient is to continue steroid taper per Dr. Patricia, her feeder catcher's recommendations. The patient is recommended to return to acute care hospital immediately if signs or symptoms return, worsen, or any other new symptoms occur. PAST MEDICAL HISTORY: 1. Crohn's. 2. Chronic pain. 3. Fibromyalgia. 4. History of vasovagal syncope. 5. Hypothyroidism. 6. Gastroesophageal reflux disease. 7. Iron deficiency anemia. HOME MEDICATIONS: 1. Levothyroxine 50 mcg one tablet p.o. daily. 2. Pantoprazole 40 mg one tablet p.o. daily. 3. Ranitidine 30 mg one tablet p.o. daily. 4. Prednisone 15 mg p.o. daily each week, decreasing by a dose of prednisone by 5 mg. 5. Budesonide 3 mg p.o. once daily. 6. Cyclobenzaprine 10 mg one tablet p.o. at bedtime p.r.n. muscle spasms. 7. Tramadol 50 mg one tablet p.o. q.8 hours p.r.n. pain. Greater than 33 minutes spent coordinating care and discharge process. Job ID: [id number] MTDD
--- NOTE | 2019-06-16 08:36 | PQF ---
MALCOLM JEFFERY GANIRMA WHYTEIK [id number]- [id number] CLINICAL DOCUMENTATION CLARIFICATION FORM: POST DISCHARGE Addendum to original discharge summary date: ____ Late entry note date: __ DATE: 06-16-2019 ATTN:Dr. Roland. Nuris Please exercise your independent, professional judgment in responding to the clarification form. Clinical indicators are provided on the bottom of this form for your review Can you please specify whether Sepsis is ruled in or ruled out during this encounter? Please check appropriate box(s) to clarify if the following diagnosis has been ruled in or ruled out: Sepsis [ ] Ruled in diagnosis [ ] Continue to treat [ ] Resolved [ XX ] Ruled out diagnosis [ ] Cannot rule out diagnosis [ ] Other diagnosis please specify: [ ] Unable to determine For continuity of documentation, please document condition throughout progress notes and discharge summary. Thank You. CLINICAL INDICATORS: H&P 06/[address] Starks Abdominal pain and black tarry stool H&P 06/[address] Starks elevated white blood cell count and lactic acid, concerning for sepsis secndary to abdominal source H&P 06/[address] Starks Metabolic acidosis H&P 06/[address] Starks She is immunosupressed on Remicade and chronic steroids , so may have a modulated fever response PN 06/[address] Roland Sepsis PN 06/[address] Roland Leukocystosis DS 06/[address] Roland there is is no acute intraabdominal pathology and no acute bowel inflammation that was identified on MRI PN 06/[address] Chun With regards to leukocytosis, i think this is related to steroids Vital signs- Temp=97.9, 98.0, 98.3, Pulse=87,91,98 Respi=18,20, 16 Labs= WBC=23.6, 28.2, 18.8, 17.7 RISK FACTOR: H&P 06/11 Dr. Starks- Crohns disease H&P 06/11 Dr. Starks-immunosupressed on Remicade TREATMENTS: Microbiology:Blood culture DEC 25- Zosyn 3.375 gm IV (This form is maintained as a part of the permanent medical record) 2014 [employer]. All Rights Reserved [email or web address] [not provided] MTDD
--- NOTE | 2019-06-17 20:50 | PQF ---
MALCOLM JEFFERY ERIK [id number] T4-A- 4414 [id number] CLINICAL DOCUMENTATION CLARIFICATION FORM: POST DISCHARGE Addendum to original discharge summary date: ____ Late entry note date: __ DATE: 06-17-2019 ATTN:Talha Bennett Please exercise your independent, professional judgment in responding to the clarification form. Clinical indicators are provided on the bottom of this form for your review Based on your clinical judgment, can you please specify the etiology of patients abdominal pain? Please check appropriate box(s): [ XX ] Crohns Disease [ ] GERD [ ] Gastroparesis [ ] Abdominal pain unspecified [ ] Other diagnosis please specify [ ] Unable to determine For continuity of documentation, please document condition throughout progress notes and discharge summary. Thank You. CLINICAL INDICATORS: ED 06/11 pg11 Diagnosis Primary: Crohns Disease Exacerbation HP 06/[address] Starks Chief complaint: Abdominal pain and black tarry stool HP 06/[address] Starks noting intermittent abdominal discomfort with a clinical working diagnosis of gastroparesis HP 06/[address] Starks abdominal pain periumbilical in nature HP 06/[address] Starks abdominal discomfort likely secondary to Crohn disease PN 06/[address] Roland Leukocytosis DS 06/[address] Roland GERD RISK FACTORS: HP Dr. Starks- Crohns Disease HP Dr. Starks- GERD HP Dr. Starks- Diabetes Milletus HP Dr. Starks- Immunosuoressed on Remicade TREATMENTS: PN 06/13- IV pain medications PN 06/13- GI consultation Microbiology- blood and stool work up (This form is maintained as a part of the permanent medical record) 2014 [employer]. All Rights Reserved Cris [email or web address] [not provided] MTDD
[2019-06-18 13:11] LABS: QuantiFERON-TB Gold Plus Negative (Negative)
--- NOTE | 2019-06-20 12:32 | CON ---
DATE OF CONSULTATION: 06/11/2019 REQUESTING PHYSICIAN: Dr. Lore Starks. REASON FOR CONSULTATION: History of Crohn disease. HISTORY OF PRESENT ILLNESS: Ms. Araujo is a 43-year-old female, who was diagnosed with Crohn's in about 2014. It ultimately was discovered as she presented with iron-deficiency anemia, intermittent melena, and abdominal pain and I was not told she had a capsule endoscopy that the disease was diagnosed. About a year ago, she came to see Dr. Patricia. He re-evaluated her. He could not find any active disease with upper or lower endoscopies or a capsule endoscopy. Ultimately, she was diagnosed with enteroarthropathy and was switched from Humira to Remicade, which just became complete and she has had her last induction infusion the day prior to admission. Intermittently, she has had some abdominal discomfort and cramping. She has been functional bowel disorder. On 06/09, reported some black stools, few episodes, on and off. She also gets iron infusions at Hematology today and yesterday, and her hemoglobin was stable. She wished to come to the office on Friday for evaluation. Also, decided to come to the emergency room as she was afraid she may be bleeding. In the emergency room, her hemoglobin was 11.7 and her white count was 23,000. She had a lactic acid of 2.3. MEDICAL HISTORY: 1. Crohn disease with extraintestinal manifestation of arthritis, diagnosed in 2014, on Remicade. 2. Fibromyalgia. 3. Prior history of vasovagal symptoms. Prior negative cardiac evaluations. 4. Hypothyroidism. 5. Reflux. 6. Iron-deficiency anemia, on chronic iron infusions. PAST SURGICAL HISTORY: MediPort, cholecystectomy, , right hand surgery, ovarian cyst, laparoscopy, and endoscopies as noted above. SOCIAL HISTORY: She is . She has one daughter, who is 22. She does not smoke, drink, or use drugs. ALLERGIES: AZATHIOPRINE. MEDICATIONS: At home, 1. Levothyroxine. 2. Pantoprazole 40 mg a day. 3. Ranitidine 300 mg a day. 4. Prednisone 15 mg a day. 5. Budesonide 3 mg day. 6. Cyclobenzaprine p.r.n. 7. Tramadol p.r.n. 8. Remicade 5 mg/kg every eight weeks now. FAMILY HISTORY: Negative for inflammatory bowel disease. REVIEW OF SYSTEMS: Negative for dysphagia, odynophagia, fever, chills, dysuria, frequency, or urgency. She has had some black stools at times just with flecks, other times with mike black stools similar to what she states she had, when she was initially diagnosed. PHYSICAL EXAMINATION: VITAL SIGNS: Blood pressure 114/67, heart rate 91, and temperature 98. GENERAL: She is resting comfortably in bed. She has torre face. She has a buffalo hump consistent with longstanding steroid use. SKIN: Has few striae on the abdomen. NECK: Supple without any adenopathy. HEENT: Normal conjunctivae and sclerae. Oropharynx, no lesions or thrush. HEART: Regular rate and rhythm without clicks or murmurs. LUNGS: Clear. ABDOMEN: Soft. There is mild tenderness, but there is no rebound. There is no guarding. Bowel sounds are positive. RECTAL: Reveals brown stool in the rectal vault. EXTREMITIES: No clubbing, cyanosis, or edema. LABORATORY DATA: White count 28,200, hemoglobin 10.1, platelet count 251, and MCV 81. Sodium 134, potassium 3.6, BUN and creatinine are 6 and 0.83, bicarb 15, anion gap 17, lactic acid 3.2 and 3.3, and calcium 9.2. AST and ALT are 18 and 48, alkaline phosphatase 75, and albumin is 4.1. Her ESR was 3. IMAGING: CAT scan of abdomen and pelvis in emergency room on 06/10, was normal. ASSESSMENT: 1. History of Crohn's of the small bowel, presenting initially with melena. She now has come to the emergency room with complaints of melena, which she has had on and off for the past few days, but her hemoglobin is about baseline. 2. Leukocytosis, likely due to the steroids with no overt signs of infection, although she does have elevated lactic acid. Her CAT scan is normal. 3. Left uterine fibroid. RECOMMENDATIONS: 1. MR enterography tomorrow. 2. Sedimentation rate and CRP. 3. We will monitor H and H. We will follow along with you. Job ID: [id number]
== END 2019-06-13 16:50 | disposition home or self-care (01) | DRG 386 ==
LOC: ERS 18:53 → T4-A 06-11 01:27
PROVIDERS: ADMIT Hospitalist; ATTEND Hospitalist
DX: K50.90 Crohn's disease, unspecified, without complications (principal); E87.2 Acidosis; E24.9 Cushing's syndrome, unspecified; K52.9 Noninfective gastroenteritis and colitis, unspecified; E03.9 Hypothyroidism, unspecified; K21.9 Gastro-esophageal reflux disease without esophagitis; M79.7 Fibromyalgia; T38.0X5A Adverse effect of glucocorticoids and synthetic analogues, initial encounter; D50.9 Iron deficiency anemia, unspecified; R73.9 Hyperglycemia, unspecified; Z79.52 Long term (current) use of systemic steroids; Z79.899 Other long term (current) drug therapy; Z88.8 Allergy status to other drugs, medicaments and biological substances; Z90.49 Acquired absence of other specified parts of digestive tract; K31.84 Gastroparesis; Z91.018 Allergy to other foods
CPT/HCPCS: 36415; 36416; 71046; 74177; 74182; 80048; 80053; 81003; 81015; 82274; 83036; 83605; 83630; 83690; 84703; 85025; 85652; 86140; 86480; 87040; 87045; 87046; 87324; 87427; 87449; 93005; 96361; 96365; 96375; 96376; C9113; J1610; J1642; J2270; J2405; J2543; J3480; J3490; J7512; Q0162; Q9967

== ENCOUNTER 2019-07-04 14:23 | Inpatient (IN) | payer BC ==
[2019-07-04 15:32] LABS: #Eosinphils 0.1 thou/uL (0.0-0.7); #Lymphocytes 1.7 thou/uL (1.20-3.40); #Monocytes 0.8 thou/uL (0.11-0.59); #Neutrophils 11.6 thou/uL (1.40-6.50); %Basophils 0.2 % (0.0-1.0); %Eosinophils 0.7 % (0.0-10.0); %Lymphocytes 11.6 % (21.0-51.0); %Monocytes 5.8 % (0.0-10.0); %Neutrophils 81.7 % (42.0-75.0); Hemoglobin 8.8 g/dL (12.0-16.0); Mean Corpuscular HGB CONC 31.8 g/dL (32.0-36.0); Mean Corpuscular Hemoglobin 25.7 pg (27.0-31.0); Mean Corpuscular Volume 80.8 fL (78.0-98.0); Mean Platelet Volume 8.2 fL (7.4-10.4); Platelet Count 321 thou/uL (130-400); RBC Distribution Width 20.5 % (11.5-14.5); Red Blood Cell (RBC) Count 3.41 mill/uL (4.20-5.40); White Blood Cell (WBC) Count 14.3 thou/uL (4.8-10.8)
[2019-07-04] MEDS ORDERED: Ketorolac Tromethamine 30 MG/ML VIAL ONE (15:33)
[2019-07-04] MEDS ORDERED: Pantoprazole 40 MG VIAL ONE (15:33)
[2019-07-04 15:52] LABS: ALT (SGPT) 35 U/L (8-55); AST (SGOT) 22 U/L (5-34); Alkaline Phosphatase 66 U/L (40-150); Anion Gap 13 mmol/L (10-20); BUN (Urea Nitrogen) 7 mg/dL (7.0-18.7); Bilirubin, Total 0.3 mg/dL (0.2-1.2); Calc. Creatinine Clearance 0 mL/min (70-130); Calcium 8.2 mg/dL (7.8-10.44); Carbon Dioxide 21 mmol/L (22-29); Chloride 108 mmol/L (98-107); Estimated GFR-MDRD Greater than 90; Globulin 2.4 g/dL (2.4-3.5); Glucose 117 mg/dL (70-105); Lipase 69 U/L (8-78); Potassium 4.3 mmol/L (3.5-5.1); Protein, Total 6.4 g/dL (6.0-8.3); Sodium 138 mmol/L (136-145)
[2019-07-04 16:40] LABS: Bacteria/HPF None Seen HPF (None Seen); Bilirubin Negative (Negative); Blood, Urine 1+ (Negative); Clarity Clear (Clear); Glucose, Urine (Dipstick) Normal (Negative); Leukocyte Negative Leu/uL (Negative); Nitrite Negative (Negative); Protein, Urine (Dipstick) Negative (Neg-Trace); RBC/HPF 0-3 HPF (0-3); Squamous Epithelial 0-3 HPF (0-3); Urobilinogen Normal mg/dL (Less than 2); WBC/HPF 0-3 HPF (0-3)
[2019-07-04] MEDS ORDERED: Acetaminophen 500 MG TAB ONE (18:28)
[2019-07-04] MEDS ORDERED: Ondansetron PF 4 MG/2 ML Vial IVP PRN (20:16)
[2019-07-04] MEDS ORDERED: Ondansetron ODT 4 MG TAB PO PRN (20:16)
[2019-07-04] MEDS: Famotidine 20 MG TAB PO SCH (20:38)
[2019-07-04 21:12] VITALS: BMI 29.1
[2019-07-04] MEDS: traMADol HCl 50 MG TAB PO PRN (21:33)
[2019-07-04] MEDS: Cyclobenzaprine 10 MG TAB PO PRN (21:33)
--- NOTE | 2019-07-04 21:45 | HP ---
PRIMARY GASTROENTEROLOGISTS: Dr. Bala Pérez and Dr. Warren Patricia. CHIEF COMPLAINT: Anemia and fatigue. HISTORY OF PRESENT ILLNESS: This is a 43-year-old female who presents to [facility] Emergency Department complaining of persistent fatigue and questionable GI bleed with black tarry stools. The patient was recently admitted to [facility] 06/11 through 06/13/2019, for abdominal pain and black stools. The patient was evaluated for potential GI bleed, undergoing MRI imaging of the abdomen showing no specific pathology. The patient was evaluated by the GI Service during this hospital stay, undergoing capsule endoscopy with negative findings. The patient with Crohn disease treated with chronic prednisone and Remicade. The patient underwent a capsule endoscopy which was interpreted as negative. The patient had recurrent symptoms of bloody stools, undergoing EGD and colonoscopy in the last 4 to 5 days prior to this evaluation. The patient states that there was no specific findings on this most recent endoscopy to explain her anemia and potential GI bleed. The patient does admit to some decreased appetite, mild abdominal discomfort, but no diarrhea or constipation. 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 The patient does admit to prior history of blood transfusions in 2015 for a suspected GI bleed. The patient denies any current anticoagulation or aspirin use. The patient denied any loss of consciousness, chest pain, direct trauma or travel history. The patient denied any documented fever, chills, or family members with similar symptoms. In the emergency room, the patient underwent general evaluation, receiving acetaminophen, intravenous Protonix, Toradol, and intravenous normal saline x2 L. PAST MEDICAL HISTORY: 1. Crohn disease with chronic immunosuppressive therapy with Remicade and prednisone. 2. Question of GI bleed with negative endoscopy including capsule technique. 3. Gastroesophageal reflux disease. 4. Vasovagal syncope. 5. Fibromyalgia. 6. Hypothyroidism. 7. Enteropathic arthritis. PAST SURGICAL HISTORY: 1. Status post right upper chest wall MediPort placement. 2. Status post cholecystectomy. 3. Status post section. 4. Status post right hand repair. 5. Status post ovarian cyst. 6. Multiple EGD and colonoscopy studies including capsule technique. CURRENT MEDICATIONS: 1. Levothyroxine 50 mcg p.o. daily. 2. Protonix 40 mg p.o. daily. 3. Ranitidine 300 mg p.o. daily. 4. Budesonide 3 capsules p.o. once a day. 5. Cyclobenzaprine 10 mg p.o. t.i.d. p.r.n. 6. Tramadol 50 mg p.o. q.8 hours p.r.n. 7. Augmentin 875 mg p.o. b.i.d. ALLERGIES: CHLORHEXIDINE, MUSHROOMS, SSRIS, ZITHROMAX. FAMILY HISTORY: No inheritable diseases per patient report. SOCIAL HISTORY: The patient resides in [facility]. Unemployed. No current alcohol, tobacco, or illicit drug use. REVIEW OF SYSTEMS: CONSTITUTIONAL: Negative for weight loss or gain, ability to conduct usual activities. SKIN: Negative for rash, itching. EYES: Negative for double vision, pain. ENT/MOUTH: Negative for nose bleeding, neck stiffness, pain, tenderness. CARDIOVASCULAR: Negative for palpitations, dyspnea on exertion, orthopnea. RESPIRATORY: Negative for shortness of breath, wheezing, cough, hemoptysis, fever or night sweats. GASTROINTESTINAL: Negative for poor appetite, abdominal pain, heartburn, nausea, vomiting, constipation, or diarrhea. GENITOURINARY: Negative for urgency, frequency, dysuria, nocturia. MUSCULOSKELETAL: Negative for pain, swelling. NEUROLOGIC/PSYCHIATRIC: Negative for anxiety, depression. ALLERGY/IMMUNOLOGIC: Negative for skin rash, bleeding tendency. Otherwise negative except as stated per HPI. PHYSICAL EXAMINATION: VITAL SIGNS: On admission, blood pressure 131/80, pulse 126, respiratory rate 19, temperature 98.3 degrees Fahrenheit, O2 saturation 99% on room air. GENERAL APPEARANCE: This is a 43-year-old female, alert and oriented x3, pleasant, conversant, responsive, in no acute distress. HEENT: Pupils are equal, round, reactive to light and accommodation. Extraocular muscles are intact. No scleral icterus. No conjunctival injection. Nares are patent. OP is clear. Teeth in fair repair. NECK: Supple. No cervical adenopathy. No thyromegaly. No carotid bruits. No JVD appreciated. Cervical spine with full active and passive range of motion. No meningeal signs noted. CHEST: Lungs are clear to auscultation bilaterally. CARDIOVASCULAR: S1, S2 without noted murmur, rub, or gallop. Tachycardia noted. ABDOMEN: Rounded, soft, nontender, and nondistended. Bowel sounds are positive in all 4 quadrants. There is no hepatosplenomegaly. No abdominal bruits. No rebound or guarding appreciated. EXTREMITIES: Warm and dry with fair turgor. No clubbing or cyanosis. No asymmetric edema appreciated. Nail beds pale. Capillary refill less than 2 seconds. NEUROLOGIC: Cranial nerves 2 through 12 are grossly intact. No focal or lateralizing signs appreciated. PERTINENT LABORATORY AND X-RAY FINDINGS: Sodium 138, potassium 4.3, chloride 108, CO2 of 21, BUN 7, creatinine 0.69, estimated GFR greater than 90, glucose 117, calcium 8.2. LFTs within normal limits. Lipase 69. CBC showed a white blood cell count of 14.3, hemoglobin 8.8, hematocrit 27.6, platelet count 321 with 82% neutrophils. Urinalysis negative. Stool Hemoccult, dated 07/04/2019, negative x1. Abdominal MRI, dated 06/12/2019, showed no acute bowel inflammatory process. No evidence of bowel obstruction. Normal spleen noted. ASSESSMENT AND PLAN: 1. Symptomatic anemia. Exact etiology of patient's anemia, unclear. Recent EGD and colonoscopy as well as recent capsule endoscopy performed with essentially negative findings. We will consult GI Service for any further recommendations. Consult Hematology Service for evaluation of complicated anemia. Check erythropoietin level, free T4, TSH, haptoglobin, and LDH. 2. Crohn's colitis. No current evidence to suggest an acute exacerbation. Continue home regimen of Entocort EC 9 mg q.a.m. and prednisone 5 mg p.o. q.a.m. 3. Normocytic anemia, acute on chronic. Exact etiology unclear. See above. Consult Hematology Service for any further recommendations and management. No current indication for packed red blood cells. 4. Hypothyroidism. Continue levothyroxine 50 mcg daily. Check TSH and free T4 level in the a.m. 5. Prophylaxis. SCDs while in bed. Pepcid 20 mg p.o. b.i.d. 6. Code status is full. Surrogate medical decision maker is not identified. Job ID: [id number]
[2019-07-05] MEDS: Levothyroxine Sodium 50 MCG TAB PO SCH (05:12)
[2019-07-05] MEDS: traMADol HCl 50 MG TAB PO PRN ×3 (05:12→23:38)
[2019-07-05 06:52] LABS: Anion Gap 11 mmol/L (10-20); BUN (Urea Nitrogen) Less than 4 mg/dL (7.0-18.7); Calc. Creatinine Clearance 124 mL/min (70-130); Calcium 8.7 mg/dL (7.8-10.44); Carbon Dioxide 23 mmol/L (22-29); Chloride 108 mmol/L (98-107); Estimated GFR-MDRD Greater than 90; Glucose 87 mg/dL (70-105); Potassium 3.7 mmol/L (3.5-5.1); Sodium 138 mmol/L (136-145)
[2019-07-05 07:12] LABS: Free T4 (Free Thyroxine) 0.96 ng/dL (0.70-1.48); Thyroid Stimulating Hormone 3.6599 uIU/mL (0.35-4.94)
[2019-07-05 07:17] LABS: Hemoglobin 8.6 g/dL (12.0-16.0); Mean Corpuscular HGB CONC 31.6 g/dL (32.0-36.0); Mean Corpuscular Hemoglobin 25.5 pg (27.0-31.0); Mean Corpuscular Volume 80.7 fL (78.0-98.0); Mean Platelet Volume 8.6 fL (7.4-10.4); Platelet Count 299 thou/uL (130-400); RBC Distribution Width 20.8 % (11.5-14.5); Red Blood Cell (RBC) Count 3.37 mill/uL (4.20-5.40); White Blood Cell (WBC) Count 10.1 thou/uL (4.8-10.8)
[2019-07-05 07:33] LABS: Anisocytosis MODERATE=16-30 cells (100X) (0-5/hpf); Band 1 % (5-11); Eosinophils 2 % (0-10); Hypochromia SLIGHT = 6-15 cells (100X) (0-5/hpf); Lymphocytes 35 % (21-51); MDiff Complete? YES; Monocytes 3 % (0-10); Neutrophil 58 % (42-75); Polychromasia SLIGHT = 2-3 cells (100X) (0-2/hpf)
[2019-07-05] MEDS: predniSONE 5 MG TAB PO SCH (08:12)
[2019-07-05] MEDS: Famotidine 20 MG TAB PO SCH (08:15)
[2019-07-05 08:34] LABS: Reticulocyte Count 3.1 % (0.5-1.5)
[2019-07-05 08:56] LABS: Iron 16 ug/dL (50-170); Iron Binding Capacity, Total 293 mcg/dL (265-497)
[2019-07-05] MEDS ORDERED: RANITIDINE HCL 300 MG PO SCH (09:00)
[2019-07-05 09:29] LABS: Folate (Folic Acid) 13.7 ng/mL (7.0-31.4)
[2019-07-05] MEDS ORDERED: Heparin 1,000 UNITS/ML VIAL ONE (11:11)
--- NOTE | 2019-07-05 14:01 | NM ---
NUCLEAR MEDICINE GI BLEEDING SCAN: HISTORY: GI bleed. Anemia, melena Radiopharmaceutical: 28.3 mCi technetium 99m labeled RBCs injected intravenously FINDINGS: There is normal accumulation of tracer within the vascular system. No abnormal areas of tracer localization are seen in the abdomen and pelvis in a pattern of increased focal uptake and tracer movement with peristalsis. Physiologic activity is present within the urinary bladder, likely from a small amount of free techne tium. IMPRESSION: No evidence of active GI bleeding during imaging.
[2019-07-05] MEDS: Metoclopramide HCl 10 MG TAB PO SCH ×2 (14:58→17:16)
[2019-07-05] MEDS ORDERED: Iron Sucrose Complex 200 MG in Sodium Chloride 0.9% 250 ML 250 ML IVPB SCH (15:45)
[2019-07-05] MEDS ORDERED: Iron, Sodium Ferric Gluconate 250 MG in Sodium Chloride 0.9% 100 ML IVPB SCH (16:00)
[2019-07-05] MEDS ORDERED: Cyanocobalamin 1000 MCG/ML VIAL IM SCH ×2 (16:00→18:00)
--- NOTE | 2019-07-05 17:26 | PDOC.HOSPP ---
- Subjective Encounter Date: 07/05/19 Encounter Time: 17:00 Subjective: f/u for symptomatic anemia likely multifactorial receiving IV Iron today and had a negative tagged RBC scan. Recent endoscopy all negative. - Objective Vital Signs & Weight: Vital Signs (12 hours) Temp Pulse Resp BP Pulse Ox 07/05/19 08:07 98 07/05/19 08:00 98.0 F 91 18 125/86 98 Weight Weight 154 lb 1.6 oz I&O: 07/04/19 07/05/19 07/06/19 06:59 06:59 06:59 Intake Total 1850 Balance 1850 Result Diagrams: 07/05/19 06:04 07/05/19 06:04 Additional Labs: Microbiology 07/04/19 14:54 Stool - Pending Stool Occult Blood (RL) - Final Laboratory Tests 07/04/19 07/05/19 07/05/19 15:18 06:04 06:04 WBC 14.3 H Hgb 8.8 L Retic Count Immature Retic Fraction Iron TIBC % Saturation Ferritin Lactate Dehydrogenase 204 Vitamin B12 Folate Free T4 0.96 TSH 3rd Generation 3.6599 07/05/19 07/05/19 07/05/19 08:17 08:17 08:17 WBC Hgb Retic Count Immature Retic Fraction Iron 16 L TIBC 293 % Saturation 5 L Ferritin 30.65 Lactate Dehydrogenase Vitamin B12 229 Folate 13.70 Free T4 TSH 3rd Generation 07/05/19 08:17 WBC Hgb Retic Count 3.1 H Immature Retic Fraction 0.604 H Iron TIBC % Saturation Ferritin Lactate Dehydrogenase Vitamin B12 Folate Free T4 TSH 3rd Generation Radiology Reviewed by me: Yes (Tagged RBC scan - negative) Hospitalist ROS - Medication Medications: Active Medications Generic Name Dose Route Start Last Admin Trade Name Freq PRN Reason Stop Dose Admin Budesonide 9 mg 07/05/19 09:00 07/05/19 09:22 Entocort Ec PO 9 mg QAM ALEJANDRA Administration Cyclobenzaprine HCl 10 mg 07/04/19 20:16 07/04/19 21:33 Flexeril PO 10 mg HSPRN PRN Administration Muscle Spasm Ferric Sodium Gluconate 120 mls @ 60 mls/hr 07/05/19 16:00 07/05/19 17:16 Complex 250 mg/ Sodium IVPB 07/05/19 17:59 120 mls Chloride NOW ALEJANDRA Administration Levothyroxine Sodium 50 mcg 07/05/19 06:00 07/05/19 05:12 Synthroid PO 50 mcg 0600 ALEJANDRA Administration Metoclopramide HCl 5 mg 07/05/19 11:30 07/05/19 17:16 Reglan PO 5 mg AC ALEJANDRA Administration Prednisone 10 mg 07/05/19 08:00 07/05/19 08:12 Prednisone PO 07/11/19 08:01 Not Given QAM-WM ALEJANDRA Tramadol HCl 50 mg 07/04/19 20:16 07/05/19 14:57 Ultram PO 50 mg Q8H PRN Administration Moderate Pain (4-6) - Exam General Appearance: NAD, awake alert General - other findings: Pale Eye: PERRL, anicteric sclera ENT: normocephalic atraumatic, no oropharyngeal lesions Neck: supple, symmetric, no JVD, no thyromegaly, no lymphadenopathy Heart: RRR, no murmur, no gallops, no rubs, normal peripheral pulses Respiratory: CTAB, no wheezes, no rales, no ronchi, normal chest expansion Gastrointestinal: soft, non-tender, non-distended, normal bowel sounds, no palpable masses Extremities: no cyanosis, no edema Skin: normal turgor, no lesions Neurological: cranial nerve grossly intact, no focal deficits, no new deficit Musculoskeletal: normal tone Psychiatric: normal affect, A&O x 3 Hosp A/P (1) Symptomatic anemia Code(s): D64.9 - ANEMIA, UNSPECIFIED Status: Chronic Plan: Etiology unclear, likely multifactorial process, ? iatrogenic component, Endoscopy all negative, may need to consider bone marrow bx (2) Iron deficiency anemia Code(s): D50.9 - IRON DEFICIENCY ANEMIA, UNSPECIFIED Status: Chronic Plan: IV Iron infusion today, continue FeSO4 supplements as outpt (3) Leukocytosis Code(s): D72.829 - ELEVATED WHITE BLOOD CELL COUNT, UNSPECIFIED Status: Acute Plan: ? etiology, resolved (4) Crohns disease Code(s): K50.90 - CROHN'S DISEASE, UNSPECIFIED, WITHOUT COMPLICATIONS Status: Chronic Plan: Appears to be controlled currently with negative endoscopy - Plan plan discussed w/ family, continue antibiotics, out of bed/ambulate, DVT proph w /SCDs Stable currently Consider Bone marrow sampling IV Iron infusion today Review chronic medications for iatrogenic influence AM lab: Erythropoetin, Haptoglobin
--- NOTE | 2019-07-05 19:37 | CON ---
DATE OF CONSULTATION: REASON FOR CONSULTATION: Anemia. HISTORY OF PRESENT ILLNESS: Ms. Araujo is a 43-year-old female patient of Dr. Roberts in [place], who presented to the emergency room with fatigue and black tarry stools. She has seen Dr. Patricia in the past and has had a recent capsule endoscopy, which was apparently negative. She does have Crohn disease and is currently on Remicade. On admission, her hemoglobin was 8.8. The patient is followed by Dr. Roberts for the last 5+ years. She receives routine iron infusions generally every other month. Iron studies this morning show serum iron of 16, an iron saturation of 5%, ferritin of 30. Her TIBC is 293. Her B12 was low normal at 229. She did have a retic count of 3.1. She denies any complaints at this time. No shortness of breath. No chest pain. No fatigue. She was seen at bedside with family. PAST MEDICAL HISTORY: 1. Crohn disease, on Remicade. 2. Gastroesophageal reflux disease. 3. Vasovagal syncope. 4. Fibromyalgia. 5. RA. 6. Hypothyroidism. PAST SURGICAL HISTORY: 1. MediPort placement. 2. Cholecystectomy. 3. . 4. Ovarian cyst. 5. Multiple endoscopies. ALLERGIES: MUSHROOMS, GLUTEN, ZITHROMAX, CHLORHEXIDINE, AND SSRIS. FAMILY HISTORY: Noncontributory. SOCIAL HISTORY: Lives in [place]. No alcohol, tobacco, or illicit drug use. REVIEW OF SYSTEMS: A 10-point review of systems is negative except for noted in HPI. PHYSICAL EXAMINATION: VITAL SIGNS: Temperature is 98.0, pulse is 91, respiratory rate 18, blood pressure is 125/86, and she is 98% on room air. GENERAL: This is a well-developed, well-nourished female, in no acute distress. HEENT: Normocephalic and atraumatic. Pupils are equal and reactive to light. NECK: Supple. CV: Regular rate and rhythm. LUNGS: Clear. ABDOMEN: Soft and nontender. Bowel sounds are positive. EXTREMITIES: No clubbing, cyanosis, or edema. SKIN: No rash. HEMATOLOGIC: No petechiae or purpura. NEUROLOGIC: Nonfocal. PERTINENT LABORATORY DATA AND X-RAYS: Current WBCs are 10.1, hemoglobin 8.6, hematocrit 27.2, platelet count is 299,000. She has 58% neutrophils, 1% bands, 35% lymphocytes, retic count 3.1. Sodium is 138, potassium 3.7, chloride 108, CO2 is 23, BUN is less than 4, creatinine 0.64, calcium 8.7. Iron 16, TIBC is 293, iron saturation is 5, ferritin is 30.65, bilirubin is 0.6, AST is 22, ALT is 35, alkaline phosphatase is 66. Serum total protein 6.4, albumin 4.0, globulin 2.4, LDH is 204, B12 of 229, and folate is normal. ASSESSMENT: Anemia, multifactorial. DISCUSSION: The patient has a longstanding anemia, for which she sees Dr. Roberts in [place]. She does receive IV iron infusions as she is unable to tolerate oral iron. I suspect that her anemia is secondary to Crohn disease immunosuppression with Remicade, poor absorption and her menses. No further workup to be done as an inpatient setting. I will give her a dose of IV iron and a B12 injection and start her on oral B12. She can follow up with Dr. Roberts as scheduled in the outpatient setting. Thank you for the consult. Job ID: [id number]
[2019-07-05] MEDS: Amoxicillin/Potassium Clav 875 MG TAB PO SCH (20:17)
[2019-07-05] MEDS ORDERED: Amoxicillin/Potassium Clav 875 MG TAB PO SCH (21:00)
[2019-07-05] MEDS: Cyclobenzaprine 10 MG TAB PO PRN (23:40)
--- NOTE | 2019-07-06 00:31 | CON ---
DATE OF CONSULTATION: 07/05/2019 REASON FOR CONSULTATION: Anemia, possible melena. CONSULTING PHYSICIAN: Dr. Zay Tesfaye. HISTORY OF PRESENT ILLNESS: The patient is a 43-year-old female with past medical history of GERD, fibromyalgia, hypothyroidism, vasovagal syncope, Crohn disease with enteropathic arthritis and chronic anemia with possible occult GI bleeding, presenting with repeat episodes of black tarry stools. The patient has undergone a significant workup in the past as evidenced by EGD x2, colonoscopy x2, and capsule endoscopy x2 (most recently with an EGD, colonoscopy, and capsule endoscopy performed within the last two weeks), all of which have been negative for overt evidence of Crohn disease or evidence of active/recent GI bleeding. More recently, she underwent an EGD and colonoscopy and after the colonoscopy had a return of more normal type bowel movements, characterized as having 1 to 2 semi-solid to solid bowel movements per day that were normal in coloration. However, over the last 2 to 3 days, she has had a return of her "black tarry stools," having approximately 3 to 4 semi-solid bowel movements of discoloration over the last 24 to 48 hours. These bowel movements have been characterized as mushy/sticky and have been difficult to clean when wiping. This also was associated with increased headaches that were associated with these episodes of black-colored stools in the past and the headache has what ultimately prompted her admission. At the current time, she endorses associated abdominal bloating, lethargy, fatigue, headache, nausea/vomiting with nonbloody emesis, difficulty with cognition (slowed thought processes), dysphagia, mild odynophagia and weight loss of 6 pounds over the last 3 to 4 weeks. She also does endorse subjective fevers and chills, but has not taken her temperature at home, in addition to generalized body pain and neck pain, both of which were chronic in nature. Of note, more recently, the patient was evaluated by her primary care physician and with the onset of her headaches, was diagnosed with a sinus infection and placed on antibiotics including amoxicillin and another unknown antibiotic. Currently, she denies any use of NSAIDs or anticoagulation. When evaluated in the ED, she was noted to have a decreased H and H when compared to baseline and ultimately admitted for possible GI bleeding. REVIEW OF SYSTEMS: A 10-category review of systems was obtained with all responses negative except for the pertinent positives as listed in HPI. PAST MEDICAL HISTORY: As per HPI. PAST SURGICAL HISTORY: MediPort placement, cholecystectomy, section, right hand repair surgery, removal of an ovarian cyst, and multiple EGDs, colonoscopies, and capsule endoscopies. FAMILY HISTORY: Denies any GI malignancies. SOCIAL HISTORY: Denies any tobacco, alcohol, or illicit drug use. OUTPATIENT MEDICATIONS: Reviewed. ALLERGIES: CHLORHEXIDINE, MUSHROOMS, AND ZITHROMAX. PHYSICAL EXAMINATION: VITAL SIGNS: Temperature 98.4, pulse 110, blood pressure 110/68, respiratory rate 18, saturating 98% on room air. GENERAL: The patient was lying in bed, in no acute distress. Alert and oriented x4. HEENT: Normocephalic and atraumatic. NECK: Supple. No JVD or scleral icterus noted. CARDIOVASCULAR: Tachycardic rate, but regular rhythm with no discernible murmurs, gallops, or rubs. RESPIRATORY: Clear to auscultation bilaterally with no discernible wheezes or rales. ABDOMEN: Normoactive bowel sounds. Soft, nondistended, mild tenderness to palpation in the left upper quadrant. EXTREMITIES: No cyanosis, clubbing, or edema. LABORATORY DATA: CBC with a white blood cell count of 10.1, hemoglobin 8.6, hematocrit 27.2, and platelets 299. Chemistry with a sodium of 138, potassium 3.7, chloride 108, CO2 of 23, BUN less than 4, creatinine 0.64, glucose 87, AST 22, ALT 35, alkaline phosphatase 66, total bilirubin 0.3, iron 16, ferritin 30, TIBC 293. IMAGING DATA: Capsule endoscopy performed on June 16, 2019, showed edema and erythema at the pylorus, but without any evidence of overt ulceration. The capsule was also retained within the duodenal bulb for approximately 1 hour, but then proper passage into the small bowel on completion of the study. There was no evidence of active/recent bleeding during the entire study with normal morphological appearance of the small bowel and no evidence of small bowel Crohn disease. Both EGD and colonoscopy were performed on July 01, 2019, with normal findings on the upper endoscopy and only a 1 mm sigmoid colon polyp removed on the colonoscopy. Again, no evidence of active/recent bleeding was seen during either of these studies. ASSESSMENT AND PLAN: The patient is a 43-year-old female with past medical history of gastroesophageal reflux disease, fibromyalgia, hypothyroidism, vasovagal syncope, Crohn disease with enteropathic arthritis, and possible overt obscure GI bleeding, presenting with continued anemia and darker colored stools concerning for melena. Melena: The patient is presenting with a recurrent history of melenic type stools that have been present for greater than 6 months. She has undergone a significant GI workup at this time with EGD x2, colonoscopy x2, and capsule endoscopy x2. All the studies of which have yielded no evidence of active or recent bleeding or any etiology that might contribute to her bouts of melena; however, she does continue to have these darker colored stools concerning for the process of melena in association with a decreased H and H. At this time, it is unclear what may be causing the discoloration of her stools, but given her significant GI workup, it is unlikely to be bleeding in origin, but may rather be a function of ingested medications and/or food stuffs. Given the iron studies obtained during this admission, she does have a low iron, a modestly low ferritin, but a low normal TIBC, which is not necessarily indicative of chronic GI blood loss (would expect a much higher TIBC and lower ferritin). Given her recent EGD and colonoscopy, further endoscopic evaluation is not necessarily indicated at this time, especially given negative prior studies within the year. Recommendations; 1. We will continue to trend her H and H and transfuse as necessary to maintain an H and H of 7/21. 2. Continue to monitor clinically for signs of active GI bleeding. 3. We will follow up on the tagged red cell scan for possible localization of any sort of bleeding within the GI tract. 4. If negative for localization of GI bleeding, we will consider non-bleeding origin of her darker colored stools. Anemia: The patient is presenting with a chronic anemia that has had some iron deficiency components in the past and currently presenting with iron indices that are concerning for anemia of chronic disease rather than iron deficiency anemia or chronic GI blood loss. Given the negative EGD, colonoscopy, and capsule endoscopy performed within the last two weeks, as well as negative studies in the past, the origin of her anemia is unlikely to be GI in origin with the tagged red cell scan performed today, it did not provide any further evidence to help localize the origin of her anemia as well. Recommendations; 1. We would consult the Hematology Service for further evaluation and recommendations regarding this chronic long-standing anemia. 2. We would continue with IV iron for supplementation. 3. We would avoid any potentially irritative medications to the GI tract including NSAIDs or prednisone (if able). If NSAIDs or prednisone are clinically indicated, we would also couple with a PPI for protection of the GI mucosa to prevent any further episodes of bleeding. We will continue to follow. Please call with any questions. Job ID: [id number]
[2019-07-06] MEDS: Acetaminophen 500 MG TAB PO PRN ×3 (03:36→15:33)
[2019-07-06] MEDS: Levothyroxine Sodium 50 MCG TAB PO SCH (06:08)
[2019-07-06] MEDS: Metoclopramide HCl 10 MG TAB PO SCH ×3 (08:42→16:03)
[2019-07-06] MEDS: Amoxicillin/Potassium Clav 875 MG TAB PO SCH ×2 (08:45→20:50)
[2019-07-06] MEDS: Cyanocobalamin (Vitamin B-12) 1,000 MCG TAB PO SCH (08:45)
[2019-07-06] MEDS: predniSONE 5 MG TAB PO SCH (08:45)
--- NOTE | 2019-07-06 13:37 | PDOC.HOSPP ---
- Subjective Encounter Date: 07/06/19 Encounter Time: 13:30 Subjective: f/u for symptomatic anemia likely multifactorial including iron-deficiency, malabsorption and recent Remicade. Feels better overall and less COHEN. - Objective Vital Signs & Weight: Vital Signs (12 hours) Temp Pulse Resp BP BP Pulse Ox 07/06/19 07:37 98 F 96 18 112/76 99 07/06/19 04:00 98.5 F 96 20 104/67 95 Weight Weight 154 lb 1.6 oz I&O: 07/05/19 07/06/19 07/07/19 06:59 06:59 06:59 Intake Total 1850 240 Balance 1850 240 Result Diagrams: 07/05/19 06:04 07/05/19 06:04 Additional Labs: Microbiology 07/04/19 14:54 Stool - Pending Stool Occult Blood (RL) - Final Laboratory Tests 07/04/19 07/05/19 07/05/19 15:18 06:04 06:04 WBC 14.3 H Hgb 8.8 L Retic Count Immature Retic Fraction Iron TIBC % Saturation Ferritin Lactate Dehydrogenase 204 Vitamin B12 Folate Free T4 0.96 TSH 3rd Generation 3.6599 07/05/19 07/05/19 07/05/19 08:17 08:17 08:17 WBC Hgb Retic Count Immature Retic Fraction Iron 16 L TIBC 293 % Saturation 5 L Ferritin 30.65 Lactate Dehydrogenase Vitamin B12 229 Folate 13.70 Free T4 TSH 3rd Generation 07/05/19 08:17 WBC Hgb Retic Count 3.1 H Immature Retic Fraction 0.604 H Iron TIBC % Saturation Ferritin Lactate Dehydrogenase Vitamin B12 Folate Free T4 TSH 3rd Generation Hospitalist ROS - Medication Medications: Active Medications Generic Name Dose Route Start Last Admin Trade Name Freq PRN Reason Stop Dose Admin Acetaminophen 1,000 mg 07/04/19 20:16 07/06/19 03:38 Tylenol PO 1,000 mg Q6H PRN Administration Mild Pain (1-3) Amoxicillin/Clavulanate Potassium 875 mg 07/05/19 21:00 07/06/19 08:45 Augmentin PO 875 mg BID ALEJANDRA Administration Budesonide 9 mg 07/05/19 09:00 07/06/19 08:46 Entocort Ec PO 9 mg QAM ALEJANDRA Administration Cyanocobalamin 1,000 mcg 07/06/19 09:00 07/06/19 08:45 Vitamin B-12 PO 1,000 mcg DAILY ALEJANDRA Administration Cyanocobalamin 1,000 mcg 07/05/19 18:00 07/05/19 18:08 Vitamin B-12 IM 1,000 mcg [id number] ALEJANDRA Administration Cyclobenzaprine HCl 10 mg 07/04/19 20:16 07/05/19 23:40 Flexeril PO 10 mg HSPRN PRN Administration Muscle Spasm Levothyroxine Sodium 50 mcg 07/05/19 06:00 07/06/19 06:08 Synthroid PO 50 mcg 0600 ALEJANDRA Administration Metoclopramide HCl 5 mg 07/05/19 11:30 07/06/19 11:55 Reglan PO 5 mg AC ALEJANDRA Administration Ondansetron HCl 4 mg 07/04/19 20:16 07/05/19 17:23 Zofran Odt PO 4 mg Q6H PRN Administration Nausea/Vomiting Pantoprazole Sodium 40 mg 07/06/19 09:00 07/06/19 08:45 Protonix PO 40 mg DAILY ALEJANDRA Administration Prednisone 10 mg 07/05/19 08:00 07/06/19 08:45 Prednisone PO 07/11/19 08:01 Not Given QAM-WM ALEJANDRA Tramadol HCl 50 mg 07/04/19 20:16 07/05/19 23:38 Ultram PO 50 mg Q8H PRN Administration Moderate Pain (4-6) - Exam General Appearance: NAD, awake alert Eye: PERRL, anicteric sclera ENT: normocephalic atraumatic, no oropharyngeal lesions Neck: supple, symmetric, no JVD, no thyromegaly, no lymphadenopathy Heart: RRR, no murmur, no gallops, no rubs, normal peripheral pulses Respiratory: CTAB, no wheezes, no rales, no ronchi, normal chest expansion Gastrointestinal: soft, non-tender, non-distended, normal bowel sounds Extremities: no cyanosis, no clubbing, no edema Skin: normal turgor, no lesions Neurological: cranial nerve grossly intact, no focal deficits, no new deficit Musculoskeletal: normal tone, normal strength Psychiatric: normal affect, A&O x 3 Hosp A/P (1) Symptomatic anemia Code(s): D64.9 - ANEMIA, UNSPECIFIED Status: Chronic Plan: Likely multifactorial process including iron-deficiency, malabsorption and Remicade. GI work up unrevealing, continue Iron replacement and B12 (2) Iron deficiency anemia Code(s): D50.9 - IRON DEFICIENCY ANEMIA, UNSPECIFIED Status: Chronic Plan: IV Iron infusion completed, likely will need aggressive iron replacement on outpt basis (3) Leukocytosis Code(s): D72.829 - ELEVATED WHITE BLOOD CELL COUNT, UNSPECIFIED Status: Acute (4) Crohns disease Code(s): K50.90 - CROHN'S DISEASE, UNSPECIFIED, WITHOUT COMPLICATIONS Status: Chronic Plan: Continue Remicade/Prednisone - Plan out of bed/ambulate, DVT proph w/SCDs Stable currently Consider Bone marrow sampling if unresponsive to aggressive iron/B12 supplementation IV Iron infusion completed Review chronic medications for iatrogenic influence, likely component of Remicade AM lab: Erythropoetin, Haptoglobin pending Check H/H today Likely home in 24h
--- NOTE | 2019-07-06 16:18 | PRG ---
DATE OF SERVICE: 07/06/2019 SUBJECTIVE: Ms. Araujo has not had any dark tarry stools today. Abdominal discomfort is minimal. She has been tolerating her diet. Headache is still present, but improved. OBJECTIVE: VITAL SIGNS: Temperature 98.0, pulse 96, blood pressure 112/76, and oxygen saturation 99% on room air. GENERAL: No acute distress. HEART: Regular rate and rhythm. LUNGS: Clear to auscultation bilaterally. ABDOMEN: Soft and nontender to palpation. EXTREMITIES: No peripheral edema. LABORATORY STUDIES: No new labs from today. Labs from yesterday showed ferritin 30.6, iron 16, TIBC 293, LDH 204, vitamin B12 of 229, folic acid 13.7. Sodium 138, potassium 3.7, BUN less than 4, and creatinine 0.64. Hemoglobin 8.6, WBC 10.1, and platelets 299. Haptoglobin, tTG antibodies, and erythropoietin levels all pending. ASSESSMENT AND PLAN: 1. Crohn disease with enteropathic arthritis. Based on the absence of findings on recent esophagogastroduodenoscopy, colonoscopy, and capsule endoscopy, I consider her Crohn disease to be in endoscopic remission. We have plans to increase her Remicade dosing to 10 mg/kg every 2 months, and she will be getting that increased dose within the next couple of weeks, but this is really more for treatment of her enteropathic arthritis than active bowel inflammation. 2. Chronic iron deficiency anemia. The patient keeps having stools that appear black, but note that her FOBT was negative. Note, no evidence of any bleeding lesion on recent esophagogastroduodenoscopy, colonoscopy and capsule endoscopy. I am doubtful to whether this represents true melena. As far as her anemia, I appreciate the assistance of boil off machine operator cloth here as well as her primary boil off machine operator cloth, Dr. Roberts. This was thought to be multifactorial secondary to her immunosuppressed state, active inflammatory disease, possibly some degree of malabsorption as well. Awaiting celiac antibodies. I think if her blood counts are stable tomorrow and she is feeling well, she should probably be discharged from the hospital tomorrow. Please call anytime with questions or concerns. Job ID: [id number]
[2019-07-06 16:59] LABS: Hemoglobin 8.9 g/dL (12.0-16.0); Platelet Count 322 thou/uL (130-400)
[2019-07-06] MEDS: traMADol HCl 50 MG TAB PO PRN (19:18)
[2019-07-06] MEDS: Cyclobenzaprine 10 MG TAB PO PRN (19:19)
[2019-07-07] MEDS: Levothyroxine Sodium 50 MCG TAB PO SCH (05:54)
[2019-07-07] MEDS: Acetaminophen 500 MG TAB PO PRN (05:57)
[2019-07-07] MEDS: Metoclopramide HCl 10 MG TAB PO SCH ×2 (08:47→12:10)
[2019-07-07] MEDS: Amoxicillin/Potassium Clav 875 MG TAB PO SCH (08:47)
[2019-07-07] MEDS: Cyanocobalamin (Vitamin B-12) 1,000 MCG TAB PO SCH (08:48)
[2019-07-07] MEDS: predniSONE 5 MG TAB PO SCH (08:49)
[2019-07-07] MEDS: traMADol HCl 50 MG TAB PO PRN (09:19)
[2019-07-07 11:02] VITALS: BP 98/56; TEMP 98.9
[2019-07-07 17:38] LABS: EliA Celiac New Method **** NEW METHOD ****; t-Transglutaminase (tTG) IgA 0.5 EliAU/mL (<7 Negative); t-Transglutaminase (tTG) IgG Less than 0.6 EliAU/mL (<7 Negative)
--- NOTE | 2019-07-07 22:02 | DIS ---
DATE OF ADMISSION: 07/04/2019 DATE OF DISCHARGE: 07/07/2019 DISCHARGE DIAGNOSES: 1. Symptomatic anemia, acute on chronic. 2. Iron deficiency anemia, status post IV iron infusion. 3. B12 deficiency. 4. Crohn disease, on chronic Remicade. CONSULTATIONS: 1. Dr. Reynolds with Hematology Service. 2. Dr. Patricia and Dr. Pérez with GI Service. PERTINENT LABORATORY AND X-RAY FINDINGS: Serum iron level 16, TIBC 293, percent saturation 5, ferritin 30.65. Lactate dehydrogenase 204. Vitamin B12 level 229. Folate level 13.7. TSH 3.66, free T4 of 0.96. LFTs within normal limits. CBC showed a white blood cell count ranging between 10.1 to 14.3, hemoglobin ranged between 8.6 to 8.9, MCV 81, platelet count ranged between 299 to 322. Reticulocyte count 3.1. Stool Hemoccult negative x1 on 07/04/2019. HOSPITAL COURSE: The patient was initially admitted after presenting with generalized weakness, fatigue, and acute on chronic anemia. The patient with extensive GI workup including EGD, colonoscopy, and capsule endoscopy without specific evidence of GI bleeding source. The patient underwent a tagged red blood cell scan on 07/05/2019, showing no evidence for active bleeding. Serial hemoglobin showed overall stable values ranging between 8.6 to 8.9 during the hospital course. The patient was evaluated by the Hematology Service with recommendations for IV iron infusion which the patient underwent without complication. The patient also received intramuscular vitamin B12 with oral supplementation recommended. The patient has chronic anemia, likely multifactorial including prominent component of iron and B12 deficiencies. Also component of Remicade in addition to the Crohn disease. Discussions were had with the Hematology Service with recommendations for aggressive replacement of iron and B12. The patient will also continue on Remicade therapy at the direction of the GI Service. No specific transfusion was warranted during this hospital course and hemoglobin remained stable on serial exam. The patient tolerated regular oral intake and was ambulatory without assistance or difficulty. I have examined the patient at the time of discharge and discussed followup instructions. The patient verbalized understanding and in agreement, ready for discharge on 07/07/2019. DISCHARGE MEDICATIONS: 1. Augmentin 875 mg 1 tablet p.o. b.i.d. 2. Entocort EC 9 mg p.o. q.a.m. 3. Flexeril 10 mg p.o. at bedtime p.r.n. 4. Drisdol 1.25 mg p.o. daily. 5. Levothyroxine 50 mcg p.o. daily. 6. Metoclopramide 5 mg p.o. t.i.d. 7. Protonix 40 mg p.o. daily. 8. Zantac 300 mg p.o. daily. 9. Tramadol 50 mg p.o. t.i.d. p.r.n. 10. Vitamin B12 1000 mcg p.o. daily. FOLLOWUP: The patient to follow up with Dr. Warren Patricia and call his office for appointment time and date. The patient will follow up with her primary care provider, Dr. Tay in [place], [place]. The patient will follow up with Dr. Roberts with Hematology Service after discharge. CONDITION ON DISCHARGE: Stable. ACTIVITY: Ad-curtis. DIET: Regular. CODE STATUS: Full. DISPOSITION: Home on 07/07/2019. TIME SPENT: Total time preparing and coordinating discharge 32 minutes. Job ID: [id number]
[2019-07-12] MEDS ORDERED: predniSONE 5 MG TAB PO SCH (08:00)
== END 2019-07-07 13:45 | disposition home or self-care (01) | DRG 812 ==
LOC: ERS 14:23 → T4-B 18:00
PROVIDERS: ADMIT Family Medicine; ATTEND Family Medicine
DX: D50.9 Iron deficiency anemia, unspecified (principal); K50.90 Crohn's disease, unspecified, without complications; K90.9 Intestinal malabsorption, unspecified; E53.8 Deficiency of other specified B group vitamins; T39.8X5A Adverse effect of other nonopioid analgesics and antipyretics, not elsewhere classified, initial encounter; K21.9 Gastro-esophageal reflux disease without esophagitis; E03.9 Hypothyroidism, unspecified; M79.7 Fibromyalgia; Z90.49 Acquired absence of other specified parts of digestive tract; Z98.890 Other specified postprocedural states; Z79.899 Other long term (current) drug therapy; Z88.8 Allergy status to other drugs, medicaments and biological substances; Z91.018 Allergy to other foods; Z56.0 Unemployment, unspecified; D72.829 Elevated white blood cell count, unspecified; K31.84 Gastroparesis
CPT/HCPCS: 36415; 78278; 80048; 80053; 81003; 81015; 82274; 82607; 82668; 82728; 82746; 83010; 83516; 83540; 83550; 83615; 83690; 84439; 84443; 85007; 85014; 85018; 85025; 85027; 85046; 85049; 86850; 86900; 86901; 93005; 94760; 96361; 96374; 96375; A9604; C9113; J1642; J1644; J1885; J2916; J3420; J3490; J7512; J8597; Q0162

== ENCOUNTER 2019-09-24 07:39 | Outpatient (CLI) | payer BC ==
--- NOTE | 2019-09-24 09:30 | MRI ---
EXAM: MRI of the abdomen without and with contrast COMPARISON: CT abdomen/pelvis 06/10/2019 HISTORY: Liver mass; Crohn's disease TECHNIQUE: Multiplanar multi sequence MR images were taken of the abdomen without and with IV contras t. [An MRCP was performed.] FINDINGS: Liver: No focal liver lesions or intrahepatic ductal dilatation. Loss of signal on out of phase image s is consistent with fatty infiltration.. No abnormal enhancement. Gallbladder: Removed Common bile duct: Normal caliber without filling defects Adrenal glands: Unremarkable. Kidneys: No hydronephrosis or focal renal lesions. No abnormal areas of enhancement. Spleen: Unremarkable. Pancreas: Unremarkable. No abnormal enhancement. Retroperitoneum: No enlarged lymph nodes Bones: No marrow signal abnormality. IMPRESSION: Fatty liver
== END 2019-09-24 07:40 | disposition home or self-care (01) ==
LOC: SCSMRI 07:39
PROVIDERS: ATTEND Internal Medicine
DX: K50.00 Crohn's disease of small intestine without complications (principal); R16.0 Hepatomegaly, not elsewhere classified; K76.0 Fatty (change of) liver, not elsewhere classified
CPT/HCPCS: 74183

== ENCOUNTER 2019-10-31 19:26 | Emergency (ER) | payer BC ==
[2019-10-31 20:42] LABS: #Basophils 0.1 thou/uL (0.0-0.2); #Eosinphils 0.1 thou/uL (0.0-0.7); #Lymphocytes 2.9 thou/uL (1.20-3.40); #Monocytes 1.2 thou/uL (0.11-0.59); #Neutrophils 13.7 thou/uL (1.40-6.50); %Basophils 0.6 % (0.0-1.0); %Eosinophils 0.5 % (0.0-10.0); %Lymphocytes 16.1 % (21.0-51.0); %Monocytes 6.6 % (0.0-10.0); %Neutrophils 76.1 % (42.0-75.0); Hemoglobin 10.2 g/dL (12.0-16.0); Mean Corpuscular HGB CONC 32.1 g/dL (32.0-36.0); Mean Corpuscular Hemoglobin 27.1 pg (27.0-31.0); Mean Corpuscular Volume 84.5 fL (78.0-98.0); Mean Platelet Volume 9.6 fL (7.4-10.4); Platelet Count 242 thou/uL (130-400); RBC Distribution Width 16.7 % (11.5-14.5); Red Blood Cell (RBC) Count 3.78 mill/uL (4.20-5.40); White Blood Cell (WBC) Count 17.9 thou/uL (4.8-10.8)
[2019-10-31 20:49] LABS: BHCG - Serum Negative (NEGATIVE); Pregs Control Background? CLEAR/WHITE (CLR/WHITE); Pregs Control Bar Appear? YES (CONTROL BAR)
[2019-10-31 20:55] LABS: Bilirubin Moderate (Negative); Blood, Urine Large (Negative); Glucose, Urine (Dipstick) Negative (Negative); Leukocyte Trace (Negative); Nitrite Positive (Negative); Protein, Urine (Dipstick) 100 mg/dL (Neg-Trace); Urobilinogen 0.2 mg/dL (Less than 2)
[2019-10-31 20:57] LABS: Clarity Hazy (Clear)
[2019-10-31 20:57] LABS: ALT (SGPT) 32 U/L (8-55); AST (SGOT) 26 U/L (5-34); Alkaline Phosphatase 69 U/L (40-110); Anion Gap 13 mmol/L (10-20); BUN (Urea Nitrogen) 8 mg/dL (7.0-18.7); Bilirubin, Total 0.3 mg/dL (0.2-1.2); Calc. Creatinine Clearance 0 mL/min (70-130); Carbon Dioxide 22 mmol/L (22-29); Chloride 105 mmol/L (98-107); Estimated GFR-MDRD 85; Globulin 2.7 g/dL (2.4-3.5); Glucose 121 mg/dL (70-105); Potassium 3.4 mmol/L (3.5-5.1); Protein, Total 6.7 g/dL (6.0-8.3); Sodium 137 mmol/L (136-145)
[2019-10-31 21:01] LABS: Bacteria/HPF 1+ HPF (None Seen); Squamous Epithelial 0-3 HPF (0-3)
[2019-10-31 21:03] LABS: Mucous/LPF 1+ LPF (<2+); Other Microscopic Description Less than 2 mL rec'd
--- NOTE | 2019-10-31 21:29 | ULT ---
TRANSABDOMINAL TRANSVAGINAL PELVIC ULTRASOUND DATE:: 10/31/2019 7:57 PM CLINICAL HISTORY: Pelvic pain with vaginal bleeding and anemia. COMPARISON: None. TECHNIQUE: Grayscale, color Doppler and spectral Doppler images were obtained of the pelvis see a tra nsabdominal transvaginal approach Uterus: Size: 8.4 x 5.0 x 7.4 cm. The uterus is bicornuate. There is a 4.4 cm fibroid within the left aspect of the uterine body. Mass: Left uterine body fibroid Cervix: Within normal limits Endometrium: Within normal limits Endometrial Thickness: 6.4 mm Ovaries: Size: right measures 3.0 x 1.4 x 1.5 cm; left measures 3.9 x 1.6 x 2.0 cm Mass: There is a 1.9 cm cyst within the right ovary. There is a 1.8 cm cyst within the left ovary.. Flow: Normal Cul-de-sac: No free fluid IMPRESSION: Bicornuate uterus with a fibroid seen within the left uterine body. Bilateral follicular cysts
== END 2019-10-31 22:35 | disposition home or self-care (01) ==
LOC: ERS 19:26
DX: D25.9 Leiomyoma of uterus, unspecified (principal); D64.9 Anemia, unspecified; N39.0 Urinary tract infection, site not specified; N94.6 Dysmenorrhea, unspecified; K21.9 Gastro-esophageal reflux disease without esophagitis; M79.7 Fibromyalgia; E03.9 Hypothyroidism, unspecified
CPT/HCPCS: 76856; 80053; 81003; 81015; 84703; 85025; 86850; 86900; 86901; J1642

== ENCOUNTER 2019-11-15 22:29 | Emergency (ER) | payer BC ==
[~2019-11-15 22:29] MED LIST changes: -Iopamidol 370 76% 100 ML VIAL ONE; +Iopamidol-370 76% 500 ML 1 ML ONE
[2019-11-15 23:48] LABS: #Basophils 0.1 thou/uL (0.0-0.2); #Eosinphils 0.1 thou/uL (0.0-0.7); #Lymphocytes 2.5 thou/uL (1.20-3.40); #Neutrophils 6.6 thou/uL (1.40-6.50); %Basophils 0.9 % (0.0-1.0); %Eosinophils 1.4 % (0.0-10.0); %Lymphocytes 24.2 % (21.0-51.0); %Monocytes 9.6 % (0.0-10.0); %Neutrophils 63.9 % (42.0-75.0); Hemoglobin 10.7 g/dL (12.0-16.0); Mean Corpuscular HGB CONC 32.4 g/dL (32.0-36.0); Mean Corpuscular Hemoglobin 26.7 pg (27.0-31.0); Mean Corpuscular Volume 82.4 fL (78.0-98.0); Mean Platelet Volume 8.3 fL (7.4-10.4); Platelet Count 328 thou/uL (130-400); RBC Distribution Width 17.5 % (11.5-14.5); Red Blood Cell (RBC) Count 3.99 mill/uL (4.20-5.40); White Blood Cell (WBC) Count 10.3 thou/uL (4.8-10.8)
[2019-11-16 00:14] LABS: Bacteria/HPF None Seen HPF (None Seen); Bilirubin Negative (Negative); Blood, Urine 1+ (Negative); Clarity Turbid (Clear); Glucose, Urine (Dipstick) Normal (Negative); Leukocyte Negative Leu/uL (Negative); Mucous/LPF 4+ LPF (<2+); Nitrite Negative (Negative); Pregnancy Test - Urine (BHCG) Negative (Negative); Pregu Control Background? CLEAR/WHITE (CLR/WHITE); Pregu Control Bar Appear? YES (CONTROL BAR); Protein, Urine (Dipstick) 30 mg/dL (Neg-Trace)
[2019-11-16 00:15] LABS: ALT (SGPT) 20 U/L (8-55); AST (SGOT) 22 U/L (5-34); Albumin 4.1 g/dL (3.5-5.0); Alkaline Phosphatase 64 U/L (40-110); Anion Gap 12 mmol/L (10-20); BUN (Urea Nitrogen) 11 mg/dL (7.0-18.7); Bilirubin, Total 0.5 mg/dL (0.2-1.2); Calc. Creatinine Clearance 0 mL/min (70-130); Calcium 8.9 mg/dL (7.8-10.44); Carbon Dioxide 21 mmol/L (22-29); Chloride 109 mmol/L (98-107); Estimated GFR-MDRD Greater than 90; Globulin 2.7 g/dL (2.4-3.5); Glucose 109 mg/dL (70-105); Lipase 42 U/L (8-78); Potassium 3.4 mmol/L (3.5-5.1); Protein, Total 6.8 g/dL (6.0-8.3); Sodium 139 mmol/L (136-145)
[2019-11-16] MEDS ORDERED: Potassium Chloride 20 MEQ TAB ONE (00:34)
[2019-11-16] MEDS ORDERED: Dexamethasone 10 MG/ML VIAL ONE (01:16)
--- NOTE | 2019-11-16 09:37 | CT ---
PRELIMINARY REPORT/[facility]/EMERGENCY AFTER HOURS PROCEDURE: EXAM: CT Abdomen and Pelvis with Intravenous Contrast CLINICAL HISTORY: 44 yo female with a pmh of crohns disease, GERD, fibromyalgia, hypothyroidism who presents to the ED with a cc of RUQ abdominal pain. She states she has not felt right for 2 days but this morning she st arted having abdominal pain, nausea, and bloody stools. She states the stools were dark red. Surgical history of cholecystectomy, Surgical history of section, right hand surgery in 1983, ovaria n cyst laproscopy in 1993. MUTLIPLE COLONOSCOPY AND UPPER GI STUDIES. TECHNIQUE: Axial computed tomography images of the abdomen and pelvis with intravenous contrast. CONTRAST: With; isovue 370, 90ml COMPARISON: None provided. FINDINGS: LUNG BASES: No basilar airspace consolidation or pleural effusion. LIVER: The liver measures 17.9 cm in length and is hypoenhancing. GALLBLADDER AND BILE DUCTS: Cholecystectomy clips in the gallbladder fossa. No ductal dilation. PANCREAS: Unremarkable. SPLEEN: Unremarkable. ADRENAL GLANDS: Unremarkable. KIDNEYS, URETERS, AND BLADDER: Unremarkable. No hydronephrosis or nephrolithiasis. No ureteral or alli dder calculi. STOMACH AND BOWEL: No obstruction. No wall thickening. No CT evidence of colitis or acute diverticuli tis. APPENDIX: No CT evidence for appendicitis. PERITONEUM: No free fluid. No free air. LYMPH NODES: No lymphadenopathy. REPRODUCTIVE: Lobular appearance of the uterus. The ovaries are normal. VASCULATURE: No aortic aneurysm. BONES: No fracture or suspicious osseous abnormality. Multilevel degenerative disc disease. ABDOMINAL WALL AND SOFT TISSUES: Unremarkable. IMPRESSION: No acute intra-abdominal or pelvic abnormality. Hepatomegaly with fatty infiltration. Lobular, fibromatous uterus. ELECTRONICALLY SIGNED BY: Fab Moses MD Nov 16, 2019 1:03:50 AM SLUDGE FILTRATION OPERATOR This report is intended for review by the ordering physician only, in accordance of law. If you recei ve this report in error, please call [facility] at [phone]. FINAL REPORT EMERGENT AFTER HOURS CT ABDOMEN AND PELVIS WITH IV CONTRAST: HISTORY: Abdominal pain in a patient with a history of Crohn's disease as well as gastroesophageal reflux dise ase. The patient states right upper quadrant abdominal pain. COMPARISON: 06/10/2019. IMPRESSION: 1. Fatty infiltration of the liver. 2. Post cholecystectomy changes. 3. Findings likely related to septate uterus with heterogeneous mass in the left aspect of the uteru s measuring 5.4 cm and larger in size than on the prior exam, but is likely related to a large uterin e fibroid. 4. Loops of small bowel are normal in caliber, and no bowel wall thickening is appreciated. 5. No acute findings are seen in the abdomen or pelvis. 6. Findings are in agreement with the preliminary report by [facility]. POS: JOSE
== END 2019-11-16 01:48 | disposition home or self-care (01) ==
LOC: ERS 22:29
DX: K62.5 Hemorrhage of anus and rectum (principal); K21.9 Gastro-esophageal reflux disease without esophagitis; E03.9 Hypothyroidism, unspecified; G47.30 Sleep apnea, unspecified; Z79.899 Other long term (current) drug therapy
CPT/HCPCS: 74177; 80053; 81003; 81015; 81025; 83605; 83690; 85025; 96374; 96375; C1729; J1100; J1642; Q9967

== ENCOUNTER 2023-08-15 15:48 | Emergency (ER) | payer BC | END 2023-08-15 18:10 | disposition home or self-care (01) | LOC: ERS 15:48 | DX: R10.9 Unspecified abdominal pain (principal); K21.9 Gastro-esophageal reflux disease without esophagitis | CPT/HCPCS: 74018; 99284 ==

== ENCOUNTER 2023-10-06 07:34 | Outpatient (CLI) | payer BC | END 2023-10-06 07:35 | disposition home or self-care (01) | LOC: NM 07:34 | PROVIDERS: ATTEND Physician Assistant Medical | DX: K50.90 Crohn's disease, unspecified, without complications (principal); K31.84 Gastroparesis; K30 Functional dyspepsia | CPT/HCPCS: 78264; A9541 ==